=== PATIENT | male | born 1965 | race Caucasian/White ===

== ENCOUNTER 2017-10-02 13:56 | Day surgery (SDC) | payer OTHER, MEDICARE, SELFPAY ==
[2017-10-02 15:12] VITALS: BP 140/86; PULSE 62; RESP 16; TEMP 36.8; O2SAT 98; BMI 19.3
[2017-10-02 16:00] VITALS: BP 139/88; PULSE 70; RESP 18; O2SAT 97
--- NOTE | 2017-10-02 16:00 | HMH.PMPROC ---
- Procedure Date: 10/02/17 Time: 16:00 Anesthesiologist:: Joseph Charles MD Complications:: None Pre-procedure Diagnosis:: Postlaminectomy syndrome and degenerative disc disease of the lumbar spine Post-procedure Diagnosis:: Same Indications for Procedure:: Patient is a pleasant 52-year-old white male we are treating for pain secondary to postlaminectomy syndrome. She is currently on intrathecal pain pump medication. Patient is on Dilaudid and bupivacaine. The Dilaudid concentration is 20 mg/mL and bupivacaine 10 mg/mL. His current rate is 2.75. He is doing well at this rate. Procedure Details:: Informed consent was obtained and the risks and benefits of the procedure was explained to the patient. The patient was taken to the procedure room. The pump was interrogated. The area over the pump was prepped using ChloraPrep. The pump was accessed with a 22-gauge needle. Approximately 6 mL's of the intrathecal solution was withdrawn and discarded. The pump was then refilled with 20 mL's of intrathecal Dilaudid 20 mg/mL plus bupivacaine 20 mg/mL. The pump was interrogated and the infusion was continued at 2.75 mg per day of Dilaudid and 2.75 mg per day. The patient tolerated the procedure well with no complication. Plan and Disposition:: Patient was monitored postprocedure and is doing well. Patient will follow up with this at the time of the next pain pump refill.
[2017-10-02 16:01] VITALS: BP 139/94; PULSE 68; RESP 20; O2SAT 97
[2017-10-02 16:05] VITALS: BP 162/81; PULSE 77; RESP 16; O2SAT 100
[2017-10-02 21:12] LABS: Amphetamine/Metha Screen,Urine Negative ng/mL (<1000); Barbiturates Screen,Urine Negative ng/mL (<200); Benzodiazepines Screen,Urine Negative ng/mL (200); Cannabinoid Screen,Urine Negative ng/mL (<50); Cocaine Screen,Urine Negative ng/g (<300); Methadone Screen,Urine Negative ng/mL (<300); Opiate Screen,Urine Positive ng/mL (<300); Phencyclidine Screen,Urine Negative ng/mL (<25)
[2017-10-16 08:23] LABS: Codeine Negative (Cutoff=100); Hydrocodone Negative (Cutoff=100); Hydromorphone Positive (.); Morphine Positive (.)
[2017-10-18 10:33] LABS: Opiates Positive (.)
== END 2017-10-02 16:28 | disposition home or self-care (01) ==
PROVIDERS: PCP Internal Medicine; Visit Provider Nurse Anesthetist, Certified Registered
DX: M51.36 Other intervertebral disc degeneration, lumbar region (principal); M96.1 Postlaminectomy syndrome, not elsewhere classified
CPT/HCPCS: 62370; 80305; 80361; G0480

== ENCOUNTER → 2017-12-20 08:37 | Day surgery (SDC) | payer OTHER, MEDICARE, SELFPAY ==
[2017-12-20 08:55] VITALS: BP 153/89; PULSE 62; RESP 18; O2SAT 96; BMI 34.3
--- NOTE | 2017-12-20 09:02 | PC.NURSE ---
PATIENT ALERT/ORIENTED AND AMBULATORY AT ASSESSMENT. PATIENT DOES NOT APPEAR TO HAVE ANY DIFFICULTY BREATHING, NORMAL RATE/DEPTH/RHYTHM. PATIENT DID NOT HAVE LIST OF MEDICATIONS WITH HIM NOR WAS HE ABLE TO ADVISE WHAT MEDICATIONS HE TAKES. PATIENT REQUESTED TO BRING LIST OF MEDICATIONS NEXT TIME HE COMES TO CLINIC.
[2017-12-20 09:27] VITALS: BP 140/90; PULSE 57; RESP 20; O2SAT 97
[2017-12-20 09:28] VITALS: BP 139/87; PULSE 63; RESP 18; O2SAT 97
[2017-12-20 09:37] VITALS: BP 146/74; PULSE 54; RESP 20; O2SAT 97
--- NOTE | 2017-12-20 09:41 | P.PCN_ITS ---
- Procedure Date: 12/20/17 Time: 09:38 Anesthesiologist:: Joseph Charles MD Complications:: None Pre-procedure Diagnosis:: Degenerative disc disease of lumbar spine with lumbar radiculopathy symptoms and postlaminectomy syndrome of lumbar spine Post-procedure Diagnosis:: Same Indications for Procedure:: This patient is a pleasant 52-year-old white male who we are treating for low back pain with lumbar radiculopathy symptoms with postlaminectomy syndrome lumbar spine. He currently is on intrathecal Dilaudid/bupivacaine pain pump at 2.75 mg per day. He is doing very well with this Dilaudid/bupivacaine mixture. He does have some pain at night. I have encouraged him to bolus himself every night before he goes to bed. Other than this overall he is much more better and much more functional. He has an antalgic gait. Motor strength of the lower extremities is 5/5. There is no gross sensory deficit. We will refill him today and continue him at 2.75 mg per day of intrathecal Dilaudid/ bupivacaine. Procedure Details:: Pain pump refill informed consent was obtained and the risks and benefits of the procedure was explained to the patient. The patient was taken to the procedure room. The pump was interrogated. The area over the pump was prepped using ChloraPrep. The pump was accessed with a 22-gauge needle. Approximately 6 mL mL's of the intrathecal solution was withdrawn and discarded. The pump was then refilled with 20 mL's of intrathecal Dilaudid 20 mg/mL plus bupivacaine 20 mg/mL. The pump was interrogated and the infusion was continued at 2.75 mg per day. PTM is 0.275 mg up to 6 times a day with a 2 hour lockout. The patient tolerated the procedure well with no complication. Plan and Disposition:: We will follow-up with him in 1 month. We will also try to enroll him in a home refill program. If he does get home or he will then we will need to see him every 6 months.
== END ==
PROVIDERS: PCP Internal Medicine; Visit Provider Anesthesiology
DX: M51.16 Intervertebral disc disorders with radiculopathy, lumbar region (principal)
CPT/HCPCS: 95991

== ENCOUNTER → 2018-06-17 11:39 | Outpatient (POV) | payer OTHER, MEDICARE, SELFPAY ==
[2018-06-17 12:03] VITALS: BP 99/60; PULSE 59; RESP 18; O2SAT 98; BMI 33.9
--- NOTE | 2018-06-17 13:01 | P.PCN_ITS ---
- Procedure Date: 06/17/18 Time: 12:50 Anesthesiologist:: Carley Sen APRN Complications:: None Pre-procedure Diagnosis:: Degenerative disc disease lumbar spine with lumbar radiculopathy symptoms and postlaminectomy syndrome of the lumbar spine Post-procedure Diagnosis:: Same Indications for Procedure:: Patient is a pleasant 53-year-old white male who presents today for intrathecal pain pump reprogramming. Patient has currently been doing home refill however he would like to transfer back to the office. Patient is on a bupivacaine and Dilaudid infusion going at a total of 4.2 mg a day which includes his boluses. Patient is having some increased pain and would like an adjustment. Patient and I discussed utilizing flex dose and he would like to try this. Patient denies any side effects to his medication. He rates his pain a 6 out of 10 Physical Exam General: Alert and oriented x3, no acute distress, pleasant and cooperative, [on room air] Lungs: Resps E/U, Symmetrical chest expansion, Eyes: PERRL Musculoskeletal: Flexion and extension of lumbar spine somewhat guarded secondary to pain, deep tendon reflexes normal, strength in upper and lower extremities [5/5], [abnormal gait noted] Neurological: speech clear, rolling attendant equal, no gross sensory deficits Procedure Details:: Informed consent was obtained and the risk and benefits of the procedure were explained to the patient. The patient was taken to the procedure room where noninvasive monitoring was placed including noninvasive blood pressure cuff and pulse oximeter. Patient's pump was interrogated. The infusion rate was changed to a flex dose with a basal rate of 0.044 mg/h and every 2 hour boluses of 0.3 mg for a total of 4.6 mg/day. The patient tolerated the procedure well. Plan and Disposition:: We will follow-up with the patient at his next intrathecal pain pump refill and reprogram. Patient has been instructed to call the office if he has any issues prior to his next appointment. This note was dictated using voice recognition software and may contain errors or omissions
== END ==
PROVIDERS: PCP Internal Medicine; Visit Provider Clinical Nurse Specialist Family Health
DX: M51.16 Intervertebral disc disorders with radiculopathy, lumbar region (principal); M96.1 Postlaminectomy syndrome, not elsewhere classified
CPT/HCPCS: 62368

== ENCOUNTER → 2018-09-15 13:41 | Outpatient (CLI) | payer OTHER, MEDICARE, SELFPAY ==
--- NOTE | 2018-09-15 13:44 | CT_ITS ---
CT lumbar spine wo con INDICATION: Low back pain with surgery and 2011. Pain gradually worse past 2 weeks. Pain and numbness down both legs been gradually gotten worse over the past 2 weeks.. Pain and numbness both legs ITS.REASON: BACK PAIN ORDERING PHYSICIAN: Carley Sen PATIENT AGE: 53 years COMPARISON: None. No previous studies at this facility TECHNIQUE: Axial images obtained with sagittal and coronal reformats. All CT scans at the facility use one or more dose reduction, viz: automated exposure control, ma/kV adjustment per patient size (including targeted exams where dose is matched to indication, i.e. head), or iterative reconstruction technique. FINDINGS: The lumbar vertebral bodies are intact. No compression fractures or lesions. Subtle wedging T12 appears to be likely congenital variation here which can occur at this level L5/S1. Degenerative disc space narrowing. Mild spondylosis & disc bulge most evident towards foramen-with mild posterior hypertrophic endplate ridging most evident encroach upon right foramen. Prominent facet hypertrophy encroaches upon the foramen bilaterally decreased from the right. The combination of features yields prominent bilateral recess and foraminal encroachment-most pronounced on right. A pain management compatible both right and left buttock region. What what is most likely a pain pump overlies the lower right back towards\right buttocks. There is a catheter or lead enters between L5 and S1 spinous processes to the left.. On axial slice 49 a question early transverse the thecal sac continuing to the anterior right epidural space or margin of the thecal sac. This continues upward were removed to the posterior aspect of thecal sac or epidural space upper L-spine. This warrants reviewed by pain management doctor to verify satisfactory position. Also note what I suspect is a stimulator device overlying the left neck region with lead extending upward towards the T-spine. L4/5. Disc intact. Mild /moderate facet arthropathy. Most evident to the right L3/4. Disc intact mild facet arthropathy. Mild ligament flavum hypertrophy. Slight narrowing the spinal canal.. L2/3. Disc intact. Modest volume underlying osseous spinal canal this particular due to the contour of the lamina posterior elements and ligamentum flavum. Borderline spinal stenosis. L1/2 disc intact T12/L1 disc intact. The kidneys, aorta, retroperitoneal regions and structures included on this lumbar CT study grossly unremarkable. IMPRESSION......... . L5/S1. Degenerative disc narrowing most evident at this level -. Disc bulge/posterior ridging/spondylosis along with very prominent hypertrophic facet features, combine to yield prominent bilateral recess & foraminal encroachment-most evident to the right. Borderline spinal stenosis. . L2/3. Borderline to mild central canal stenosis.- Due to the underlying anatomy along with mild prominence of posterior elements. .L3/4. Modest spinal canal. Mild facet hypertrophy. Trace disc bulge. What appears to be pain pump overlies the right lower back/towards right buttock. Catheter enters posteriorly at L5/S1 and extends through the spinal canal as discussed above. This warrants correlation and detailed review by pain management team & physician to verify satisfactory position of catheter . .
== END ==
PROVIDERS: PCP Internal Medicine; Visit Provider Clinical Nurse Specialist Family Health
DX: M54.9 Dorsalgia, unspecified (principal)
CPT/HCPCS: 72131

== ENCOUNTER → 2018-09-23 14:37 | Outpatient (CLI) | payer BC, SELFPAY ==
[2018-09-23 17:13] LABS: Amphetamine/Metha Screen,Urine Negative ng/mL (<1000); Barbiturates Screen,Urine Negative ng/mL (<200); Benzodiazepines Screen,Urine Negative ng/mL (<200); Cannabinoid Screen,Urine Negative ng/mL (<50); Cocaine Screen,Urine Negative ng/mL (<300); Methadone Screen,Urine Negative ng/mL (<300); Opiate Screen,Urine Positive ng/mL (<300); Phencyclidine Screen,Urine Negative ng/mL (<25)
[2018-09-27 13:10] LABS: Codeine Negative (Cutoff=100); Hydrocodone Negative (Cutoff=100); Hydromorphone Positive (.); Morphine Negative (Cutoff=100)
[2018-09-27 22:48] LABS: Opiates Positive (.)
== END ==
PROVIDERS: Visit Provider Clinical Nurse Specialist Family Health
DX: M51.16 Intervertebral disc disorders with radiculopathy, lumbar region (principal); Z79.899 Other long term (current) drug therapy
CPT/HCPCS: 80305; 80361; 80365; 95991; G0480

== ENCOUNTER → 2019-01-27 12:04 | Outpatient (POV) | payer BC, MEDICARE, SELFPAY ==
[2019-01-27 12:15] VITALS: BP 141/87; PULSE 60; RESP 18; O2SAT 98; BMI 35.9
--- NOTE | 2019-01-27 12:34 | HMH.PAINSOAP ---
[facility] Pain Management SOAP Note Subjective:: Patient is a pleasant 53-year-old white male who presents today for follow-up after MILD procedure. Patient is doing extremely well stating he can can at least double the amount of time he was able to before he is walking better. He is having some muscle cramps however overall he is doing well. Patient does have an intrathecal pain pump rates his pain a 4 out of 10 today. Patient will be trying CBD oil. I encouraged this. Patient is tried and failed Flexeril and Zanaflex has had no relief of his cramping. Most of his pain is in his legs during this time. Patient states he has not fallen one time since his surgery. ROS General: no recent weight change, no fever, no sleep disturbances Respiratory: no cough, no shortness of air, no recurring pulmonary infections Cardiovascular/Peripheral Vascular: No chest pain, No palpitations, no edema, no shortness of breath. Gastrointestinal: no incontinence, normal bowel movements reported Genitourinary: no incontinence Musculoskeletal: Back pain, leg pain Psychiatric: normal mood/ affect, [denies depression], [denies anxiety] Neurological: [denies weakness in extremities], [denies balance issues] Objective:: Physical Exam General: Alert and oriented x3, no acute distress, pleasant and cooperative, [on room air] Lungs: Resps E/U, Symmetrical chest expansion, Eyes: PERRL Musculoskeletal: Flexion and extension of lumbar spine somewhat guarded secondary to pain, deep tendon reflexes normal, strength in upper and lower extremities [5/5], [abnormal gait noted] Neurological: speech clear, pharmaceutical service representative equal, no gross sensory deficits Assessment:: Degenerative disc disease lumbar spine with spinal stenosis and neurogenic claudication Plan:: We will see the patient back at his next intrathecal pain pump refill and reprogram. He is been instructed to call the office if he has any issues prior to his next appointment. Will call in Robaxin 500 mg 1 p.o. twice daily as needed for him. Dr. Charles has reviewed this note and agrees with this plan of care. This note was dictated using voice recognition software and may contain errors or omissions
== END ==
PROVIDERS: PCP Internal Medicine; Visit Provider Clinical Nurse Specialist Family Health
DX: M48.062 Spinal stenosis, lumbar region with neurogenic claudication (principal)
CPT/HCPCS: 99212

== ENCOUNTER → 2019-11-12 09:43 | Outpatient (POV) | payer BC, MEDICARE, SELFPAY ==
--- NOTE | 2019-11-12 10:50 | P.CONS_ITS ---
[facility] History Medical History: Reports:: Hypertension (not on meds), Lung Disease (YUMIKO-cpap hs) Denies:: Cancer, Diabetes Mellitus Type 1, Diabetes Mellitus Type 2, Internal Pacemaker, MRSA, Seizures *Have you ever received a pneumonia vaccine?: No *Have you received a flu vaccine this season?: Yes Other Medical History: Reports: Arthritis. Denies: Blood Transfusion Reaction Other Surgeries: Yes: Cholecystectomy, Other (pain pump/stimulator, back sx, detached retina sx). No: Pacemaker Amputation: No Fractures: No - *Social History Smoking Status: Current every day smoker Tobacco Type: cigarettes # Packs/Day (cigarettes): 1 Alcohol Intake: never Substance Use Type: other *Occupational Status:: disabled Housing: house Household Members: spouse Family Hx:: Unable to obtain
[2019-11-12 10:51] VITALS: BP 123/77; PULSE 82; RESP 18; O2SAT 99; BMI 37.3
--- NOTE | 2019-11-12 10:54 | HMH.PMPROC ---
- Procedure Date: 11/12/19 Time: 10:54 Anesthesiologist:: Yenny Wise APRN Complications:: None Pre-procedure Diagnosis:: Degenerative disc disease lumbar spine with lumbar radiculopathy symptoms Post-procedure Diagnosis:: Same Indications for Procedure:: Patient is a pleasant 54-year-old white male who presents today for follow-up he is being treated for low back pain with lumbar radiculopathy symptom. Patient does have an intrathecal pain pump. He also has a spinal cord stimulator that was replaced last week. Patient says he is doing well, overall. He does rate his pain a 7 out of 10 today. He says that he continues to have low back pain and understands that nothing will take all of his pain away. He says that the pain is worse with standing and walking. Most of his pain is in his bilateral lower extremities that have pain along with numbness and tingling. He also has some edema in bilateral lower extremities that he says he is discussed with his primary care provider. The patient is on Lasix and says this is not helping with the edema. His intrathecal pump currently has Dilaudid 25 mg/mL and bupivacaine 25 mg/mL. Patient says that he knows he is getting high with his intrathecal dose and knows that he will have to limit the amount of medicine that he continues to use in his pump or he will be without any other options. He says he has tried other medications in his intrathecal pump and has not gotten relief or had severe side effects with nausea and vomiting. He is currently on a flex dose at 0 0.45 mg every 2 hours. He would like a slight increase today. We will increase him to see if he gets some relief. Physical exam General: Alert and oriented x3, no acute distress, pleasant and cooperative, [on room air] Lungs: Respirations even and unlabored, symmetrical chest expansion Eyes: PERRL Musculoskeletal: Flexion and extension of lumbar spine somewhat guarded secondary to pain, deep tendon reflexes normal, strength in upper and lower extremities [5/5], [abnormal gait noted] Neurological: Speech clear, customer experience professional equal, no gross sensory deficit Procedure Details:: Informed consent was obtained and the risk and benefits of the procedure were explained to the patient. Patient was taken to the procedure room where noninvasive monitoring was placed including noninvasive blood pressure cuff and pulse oximeter. Patient's pump was interrogated and was reprogrammed to a flex dose of 0.5 mg every 2 hours. The patient tolerated the procedure well with no complications. Plan and Disposition:: We will see the patient back in the clinic in 2 weeks to remove his sutures. Patient has been instructed to contact clinic if he has any concerns before his next appointment. Overall, his incision looks good at his stimulator site. There is no drainage, no redness, no edema noted to site. His sutures are intact. Patient has been instructed to contact clinic if he has any concerns before his next appointment. Patient's Will #[id number] has been reviewed and is appropriate. Patient's urine drug screens have been appropriate. His morphine equivalent is 0.
--- NOTE | 2019-11-19 11:13 | PC.NURSE ---
robaxin 500mg bid with 4 refills called into [facility] in [place] per provider order
== END ==
PROVIDERS: PCP Internal Medicine; Visit Provider Clinical Nurse Specialist Family Health
DX: M51.16 Intervertebral disc disorders with radiculopathy, lumbar region (principal); Z79.899 Other long term (current) drug therapy; R60.0 Localized edema
CPT/HCPCS: 62368

== ENCOUNTER → 2020-02-02 13:42 | Day surgery (SDC) | payer BC, MEDICARE, SELFPAY ==
[2020-02-02 13:52] VITALS: BP 160/94; PULSE 78; RESP 18; O2SAT 94
[2020-02-02 14:08] VITALS: BP 146/80; PULSE 69; RESP 18; TEMP 36.7; O2SAT 98
[2020-02-02 14:15] VITALS: BP 147/75; PULSE 70; RESP 18; O2SAT 99
--- NOTE | 2020-02-02 14:24 | HMH.PMPROC ---
- Procedure Date: 02/02/20 Time: 14:24 Anesthesiologist:: aCrley Sen APRN Complications:: None Pre-procedure Diagnosis:: Degenerative euro disc disease lumbar spine with lumbar radiculopathy postlaminectomy syndrome Post-procedure Diagnosis:: Same Indications for Procedure:: Patient is a pleasant 54-year-old who presents today for intrathecal pain pump refill and reprogram. Will reviewed and appropriate. Patient's urine drug screens have been appropriate. He rates his pain today as 7 out of 10. He is on a current flex dose of 0.5 mg every 2 hours Physical Exam General: Alert and oriented x3, no acute distress, pleasant and cooperative, [on room air] Lungs: Resps E/U, Symmetrical chest expansion, Eyes: PERRL Musculoskeletal: Flexion and extension of lumbar spine somewhat guarded secondary to pain, deep tendon reflexes normal, strength in upper and lower extremities [5/5], [abnormal gait noted] Neurological: speech clear, counseling services director equal, no gross sensory deficits Procedure Details:: Informed consent was obtained and the risk and benefits of the procedure were explained to the patient. The patient was taken to the procedure room where noninvasive monitoring was placed including noninvasive blood pressure cuff and pulse oximeter. Patient's pump was interrogated. The area over the pump was cleansed with chlorhexidine as a cleansing solution. In sterile fashion the pump was accessed with a 22-gauge needle. Approximately 5 mL's were removed of the pump solution and discarded appropriately. The pump was then refilled with 20 mL's of hydromorphone 25 mg/mL and bupivacaine 25 mg/mL. The needle was withdrawn and a bandage was placed over the puncture site. The infusion rate was reprogrammed to 0.55 mg every 2 hours. The patient tolerated the procedure well. Plan and Disposition:: We will see the patient back at his next intrathecal pain pump refill and reprogram. He has been instructed to call the office if he has any issues prior to his next appointment. Dr. Charles has reviewed this note and agrees with this plan of care. This note was dictated using voice recognition software and may contain errors or omissions
[2020-02-02 14:29] VITALS: BP 156/90; PULSE 63; RESP 18; O2SAT 94
== END ==
PROVIDERS: PCP Internal Medicine; Visit Provider Clinical Nurse Specialist Family Health
DX: M51.16 Intervertebral disc disorders with radiculopathy, lumbar region (principal); M96.1 Postlaminectomy syndrome, not elsewhere classified; Z88.8 Allergy status to other drugs, medicaments and biological substances; Z72.0 Tobacco use; F32.9 Major depressive disorder, single episode, unspecified; F41.9 Anxiety disorder, unspecified; Z87.442 Personal history of urinary calculi; Z86.69 Personal history of other diseases of the nervous system and sense organs
CPT/HCPCS: 62370

== ENCOUNTER 2020-04-11 14:09 | Day surgery (SDC) | payer BC, MEDICARE, SELFPAY ==
[2020-04-11 14:46] VITALS: BP 138/84; PULSE 66; RESP 18; TEMP 36.7; O2SAT 97; BMI 37.3
--- NOTE | 2020-04-11 15:00 | HMH.PMPROC ---
- Procedure Date: 04/11/20 Time: 15:00 Anesthesiologist:: Yenny Wise APRN Complications:: None Pre-procedure Diagnosis:: Degenerative disc disease lumbar spine with lumbar radiculopathy symptoms, postlaminectomy syndrome lumbar spine Post-procedure Diagnosis:: Same Indications for Procedure:: Patient is a pleasant 54-year-old white male who presents today for intrathecal pain pump refill and reprogram. He has been treated for low back pain with lumbar radiculopathy symptoms. Patient rates his pain a 6 out of 10 today. He is currently on a flex dose of 0.55 mg every 2 hours. He denies any side effects to the medication. Patient's Will #[id number] has been reviewed and is appropriate. His urine drug screens have been appropriate. His morphine equivalent is 0. Patient rates his pain a 6 out of 10 today. Physical exam General: Alert and oriented x3, no acute distress, pleasant and cooperative, [on room air] Lungs: Respirations even and unlabored, symmetrical chest expansion Eyes: PERRL Musculoskeletal: Flexion and extension of lumbar spine somewhat guarded secondary to pain, deep tendon reflexes normal, strength in upper and lower extremities [5/5], [abnormal gait noted] Neurological: Speech clear, electric needle specialist equal, no gross sensory deficit Procedure Details:: Informed consent was obtained and the risk and benefits of the procedure were explained to the patient. The patient was taken to the procedure room where noninvasive monitoring was placed including noninvasive blood pressure cuff and pulse oximeter. Patient's pump was interrogated. The area over the pump was cleansed with chlorhexidine as a cleansing solution. In sterile fashion the pump was accessed with a 22-gauge needle. Approximately 2.5 Mls of the pump solution was removed and discarded appropriately. The pump was then refilled with 20 mL's of hydromorphone 25 mg/mL bupivacaine 25 mg/mL. The needle was withdrawn and a bandage was placed over the puncture site. The infusion rate was reprogrammed at 0.55 mg every 2 hours. The patient tolerated well with no complication. Plan and Disposition:: We will see the patient back in the clinic at his next intrathecal pain pump refill and reprogram. He has been instructed to contact the clinic if he has any concerns before his next appointment. The patient and I specifically discussed risk factors for COVID19. These risks include, but are not limited to age greater than 60, heart or lung disease, diabetes, immunosuppression, and travel. We also discussed NSAIDs may worsen COVID19 infection or symptoms. Patient should not use NSAIDs to treat COVID19 signs or symptoms. Patient was also informed that any type of corticosteroid of any form (oral or injection) will decrease the patient's immune system response and may increase the likelihood of COVID19 infection [address] symptoms[address]. Charles has reviewed this note and agrees with this plan of care. This note was dictated using voice recognition software and make contain errors or omissions.
[2020-04-11 15:03] VITALS: BP 131/81; BP 132/88; PULSE 65; PULSE 66; RESP 18; O2SAT 98
[2020-04-11 15:15] VITALS: BP 140/71; PULSE 65; RESP 18; O2SAT 97
== END 2020-04-11 15:16 | disposition home or self-care (01) ==
LOC: SC.PAINP 14:12
PROVIDERS: PCP Internal Medicine; Visit Provider Clinical Nurse Specialist Family Health
DX: M51.16 Intervertebral disc disorders with radiculopathy, lumbar region (principal); M96.1 Postlaminectomy syndrome, not elsewhere classified; Z72.0 Tobacco use; Z87.39 Personal history of other diseases of the musculoskeletal system and connective tissue; I10 Essential (primary) hypertension; G47.33 Obstructive sleep apnea (adult) (pediatric); M19.90 Unspecified osteoarthritis, unspecified site; F41.9 Anxiety disorder, unspecified; F32.9 Major depressive disorder, single episode, unspecified; N40.0 Benign prostatic hyperplasia without lower urinary tract symptoms; Z79.899 Other long term (current) drug therapy; Z88.8 Allergy status to other drugs, medicaments and biological substances
CPT/HCPCS: 95991

== ENCOUNTER 2020-06-06 14:34 | Day surgery (SDC) | payer BC, MEDICARE, SELFPAY ==
[2020-06-06 14:56] VITALS: BP 149/88; PULSE 86; RESP 18; TEMP 37.2; O2SAT 99; BMI 38.0
[2020-06-06 15:24] VITALS: BP 134/87; PULSE 79; RESP 18; O2SAT 98
[2020-06-06 15:25] VITALS: BP 135/87; PULSE 88; RESP 18; TEMP 36.8; O2SAT 98
--- NOTE | 2020-06-06 15:37 | P.PCN_ITS ---
- Procedure Date: 06/06/20 Time: 15:37 Anesthesiologist:: Carley Sen APRN Complications:: None Pre-procedure Diagnosis:: Degenerative disc disease lumbar spine lumbar radiculopathy symptoms postlaminectomy syndrome lumbar spine Post-procedure Diagnosis:: Same Indications for Procedure:: Patient is a pleasant 55-year-old white male who presents today for intrathecal pain pump refill and reprogram. He is being treated for pain secondary to lumbar postlaminectomy syndrome. Patient's main complaint is his right SI joint pain today. Patient had many injections with Dr. Gray for SI joint pain however they did not last care home. We discussed a corner lock procedure. I will set him up for a an SI joint injection with Dr. bass to see if this would benefit him. He does have a positive Oral's test SI joint compression test and Josiah test on the right side. Patient denies side effects to his medication. He is currently on hydromorphone going at 0.55 mg every 2 hours. [facility] #[id number] reviewed and appropriate. He rates his pain today an 8 out of 10 Physical Exam General: Alert and oriented x3, no acute distress, pleasant and cooperative, Lungs: Resps E/U, Symmetrical chest expansion, Eyes: PERRL Musculoskeletal: Flexion and extension of lumbar spine somewhat guarded secondary to pain, deep tendon reflexes normal, strength in upper and lower extremities [5/5], [abnormal gait noted] Neurological: speech clear, tableman equal, no gross sensory deficits Procedure Details:: Informed consent was obtained and the risk and benefits of the procedure were explained to the patient. The patient was taken to the procedure room where noninvasive monitoring was placed including noninvasive blood pressure cuff and pulse oximeter. Patient's pump was interrogated. The area over the pump was cleansed with chlorhexidine as a cleansing solution. In sterile fashion the pump was accessed with a 22-gauge needle. Approximately 6 mL's were removed of the pump solution and discarded appropriately. The pump was then refilled with 20 mL's of hydromorphone 25 mg/mL and bupivacaine 25 mg/mL. The needle was withdrawn and a bandage was placed over the puncture site. The infusion rate was reprogrammed to 0.55 mg every 2 hours. The patient tolerated the procedure well. Plan and Disposition:: We will set him up for right SI joint injection with Dr. Tafoya to see if he is a candidate for corner lock procedure. Patient will also be called in Robaxin 500 mg 1 p.o. 3 times daily to see if this is beneficial for him. I will follow-up with him after this reassess his symptoms at that time he has been instructed to call the office if he has any issues prior to his next appointment. Dr. Charles has reviewed this note and agrees with this plan of care. This note was dictated using voice recognition software and may contain errors or omissions
[2020-06-06 15:50] VITALS: BP 124/76; PULSE 78; RESP 20; O2SAT 98
== END 2020-06-06 15:52 | disposition home or self-care (01) ==
LOC: SC.PAINP 14:38
PROVIDERS: PCP Internal Medicine; Visit Provider Clinical Nurse Specialist Family Health
DX: M51.16 Intervertebral disc disorders with radiculopathy, lumbar region (principal); M96.1 Postlaminectomy syndrome, not elsewhere classified
CPT/HCPCS: 95991

== ENCOUNTER 2020-07-25 13:59 | Day surgery (SDC) | payer BC, MEDICARE, SELFPAY ==
[2020-07-25 14:14] VITALS: BP 134/76; PULSE 66; RESP 20; TEMP 36.4; O2SAT 95; BMI 35.6
--- NOTE | 2020-07-25 14:26 | P.PCN_ITS ---
- Procedure Date: 07/25/20 Time: 14:40 Anesthesiologist:: Carley Sen APRN Complications:: None Pre-procedure Diagnosis:: Degenerative disc disease lumbar spine lumbar radiculopathy postlaminectomy syndrome lumbar spine Post-procedure Diagnosis:: Same Indications for Procedure:: Patient is a pleasant 55-year-old white male who presents today for intrathecal pain pump refill and reprogram. He is being treated for pain secondary to lumbar postlaminectomy syndrome. Patient's main complaint is right SI joint pain. Patient has had many injections with Dr. Gray for SI joint pain however they did not last prison. We have discussed a corner lock procedure. We will set him up for an SI joint injection with Dr. Parada. Patient states that his pain pump is beneficial however he is not getting excellent pain relief. He is currently on hydromorphone 0.55 mg every 2 hours with a basal rate as well. He rates his pain an 8 out of 10. [facility] #[id number] reviewed. Physical Exam General: Alert and oriented x3, no acute distress, pleasant and cooperative, [on room air] Lungs: Resps E/U, Symmetrical chest expansion, Eyes: PERRL Musculoskeletal: Flexion and extension of lumbar spine somewhat guarded secondary to pain, deep tendon reflexes normal, strength in upper and lower extremities [5/5], [abnormal gait noted] Neurological: speech clear, mangle tender cloth equal, no gross sensory deficits Procedure Details:: Informed consent was obtained and the risk and benefits of the procedure were explained to the patient. The patient was taken to the procedure room where noninvasive monitoring was placed including noninvasive blood pressure cuff and pulse oximeter. Patient's pump was interrogated. The area over the pump was cleansed with chlorhexidine as a cleansing solution. In sterile fashion the pump was accessed with a 22-gauge needle. Approximately 7.5 mL's were removed of the pump solution and discarded appropriately. The pump was then refilled with 20 mL's of hydromorphone 30 mg/mL bupivacaine 30 mg/mL. The needle was withdrawn and a bandage was placed over the puncture site. The infusion rate was reprogrammed to continue at 0.55 mg every 2 hours for total daily dose of 7.5 mg/day. The patient tolerated the procedure well. Plan and Disposition:: Patient was unable to tolerate morphine when he had his trial. Patient has been on Dilaudid for quite some time. I will discuss with Dr. Parada about a potential medication change will let the patient know. We will also set him up for right SI joint injection. He has been instructed to call the office if he has any issues prior to his next appointment. Dr. Charles has reviewed this note and agrees with this plan of care. This note was dictated using voice recognition software and may contain errors or omissions
[2020-07-25 14:28] VITALS: BP 145/91; PULSE 67; RESP 20; O2SAT 95
[2020-07-25 14:30] VITALS: BP 163/99; PULSE 64; RESP 20; O2SAT 96
[2020-07-25 15:21] VITALS: BP 124/70; PULSE 61; RESP 20; TEMP 36.4; O2SAT 99
== END 2020-07-25 15:15 | disposition home or self-care (01) ==
LOC: SC.PAINP 14:00
PROVIDERS: PCP Internal Medicine; Visit Provider Clinical Nurse Specialist Family Health
DX: M51.16 Intervertebral disc disorders with radiculopathy, lumbar region (principal); M96.1 Postlaminectomy syndrome, not elsewhere classified; Z45.1 Encounter for adjustment and management of infusion pump
CPT/HCPCS: 95991

== ENCOUNTER 2020-09-26 13:53 | Day surgery (SDC) | payer OTHER, MEDICARE, SELFPAY ==
[2020-09-26 13:59] VITALS: BP 130/71; PULSE 62; RESP 18; TEMP 36.4; O2SAT 98; BMI 35.6
[2020-09-26 14:29] VITALS: BP 177/89; PULSE 72; RESP 18; O2SAT 99
[2020-09-26 14:30] VITALS: BP 168/79; PULSE 74; RESP 18; O2SAT 98
--- NOTE | 2020-09-26 14:44 | HMH.PMPROC ---
- Procedure Date: 09/26/20 Time: 14:44 Anesthesiologist:: Carley Sen APRN Complications:: None Pre-procedure Diagnosis:: Degenerative disc disease lumbar spine lumbar radiculopathy and postlaminectomy syndrome lumbar spine Post-procedure Diagnosis:: Same Indications for Procedure:: Patient is pleasant 55-year-old white male who presents today for intrathecal pain pump refill and reprogram. Since his last visit he has had a stay in the hospital where he was treated for severe sinus infection and a severe reaction to Ambien. Patient has since quit smoking and is lost weight. He feels better. He rates his pain today a 7 out of 10. Patient states that after his hospital stay and after the infection was treated he had no pain. Patient does have currently hydromorphone going at 0.55 mg every 2 hours for total daily dose of 7.5 mg/day he would like a slight increase today. [facility] #[id number] reviewed and appropriate. We had discussed changing medications however since he is doing better at this time I think we should hold off on this. Procedure Details:: Informed consent was obtained and the risk and benefits of the procedure were explained to the patient. The patient was taken to the procedure room where noninvasive monitoring was placed including noninvasive blood pressure cuff and pulse oximeter. Patient's pump was interrogated. The area over the pump was cleansed with chlorhexidine as a cleansing solution. In sterile fashion the pump was accessed with a 22-gauge needle. Approximately 10 mL's were removed of the pump solution and discarded appropriately. The pump was then refilled with 20 mL's of hydromorphone 30 mg/mL and bupivacaine 30 mg/mL. The needle was withdrawn and a bandage was placed over the puncture site. The infusion rate was reprogrammed to 8.251 mg/day. The patient tolerated the procedure well. Plan and Disposition:: Patient had a discrepancy in the amount expected. There was an expected 4.5 mL and we received 10 mL out. We will continue to monitor this. I did discuss with the patient catheter dye study along with potential issues with the pump he will continue to monitor he is can call our office if he has any issues prior to his next appointment. Dr. Charles has reviewed this note and agrees with this plan of care. This note was dictated using voice recognition software and may contain errors or omissions
[2020-09-26 14:50] VITALS: BP 151/76; PULSE 66; RESP 20; O2SAT 98
== END 2020-09-26 14:50 | disposition home or self-care (01) ==
LOC: SC.PAINP 13:55
PROVIDERS: PCP Internal Medicine; Visit Provider Clinical Nurse Specialist Family Health
DX: M51.16 Intervertebral disc disorders with radiculopathy, lumbar region (principal); M96.1 Postlaminectomy syndrome, not elsewhere classified
CPT/HCPCS: 62370

== ENCOUNTER 2020-11-21 13:15 | Day surgery (SDC) | payer OTHER, MEDICARE, SELFPAY ==
[2020-11-21 13:37] VITALS: BP 120/77; PULSE 72; RESP 20; TEMP 37; BMI 36.6
--- NOTE | 2020-11-21 13:48 | HMH.PMPROC ---
- Procedure Date: 11/21/20 Time: 13:48 Anesthesiologist:: Carley Sen APRN Complications:: None Pre-procedure Diagnosis:: Degenerative disc disease lumbar spine lumbar radiculopathy and postlaminectomy syndrome lumbar spine Post-procedure Diagnosis:: Same Indications for Procedure:: Patient is a pleasant 55-year-old white male who presents today for intrathecal pain pump refill and reprogram. He is continuing to have increasing pain today. He rates his pain 7 out of 10. He states that he is increased his spinal cord stimulator to help compensate for the pain. He is currently being treated with hydromorphone total daily dose of 8.251 mg/day. At his last appointment for pain pump refill there was a discrepancy 4.5 mL was expected and we had 10 mL out of the pump. Will was reviewed and is appropriate. Procedure Details:: Informed consent was obtained and the risk and benefits of the procedure were explained to the patient. The patient was taken to the procedure room where noninvasive monitoring was placed including noninvasive blood pressure cuff and pulse oximeter. Patient's pump was interrogated. The area over the pump was cleansed with chlorhexidine as a cleansing solution. In sterile fashion the pump was accessed with a 22-gauge needle. Approximately [17.5] mL's were removed of the pump solution and discarded appropriately. The pump was then refilled with 20 mL's of [Dilaudid 30 mg/mL and bupivacaine 30 mg/mL with]. The needle was withdrawn and a bandage was placed over the puncture site. The infusion rate was reprogrammed to [8.251mg/day]. The patient tolerated the procedure well. Plan and Disposition:: There was a discrepancy in the pump today we were expected to have 4mLs remaining in the pump, we extracted 17.5 mL. Patient has had discrepancy issues in the past patient's pump seem to be functioning appropriately. Patient is due for change out of pump within the next year. We will go ahead and set him up for new intrathecal pain pump utilizing a [employer] system. Dr. Charles has reviewed this note and agrees with this plan of care. This note was dictated using voice recognition software and may contain errors or omissions
[2020-11-21 13:49] VITALS: BP 137/84; PULSE 78; RESP 18
[2020-11-21 13:56] VITALS: BP 138/88; PULSE 79; RESP 18; O2SAT 97
[2020-11-21 15:01] VITALS: BP 131/84; PULSE 73; RESP 20; TEMP 37; O2SAT 96
== END 2020-11-21 14:00 | disposition home or self-care (01) ==
LOC: SC.PAINP 13:20
PROVIDERS: PCP Internal Medicine; Visit Provider Clinical Nurse Specialist Family Health
DX: M51.16 Intervertebral disc disorders with radiculopathy, lumbar region (principal); M96.1 Postlaminectomy syndrome, not elsewhere classified; N40.0 Benign prostatic hyperplasia without lower urinary tract symptoms; K21.9 Gastro-esophageal reflux disease without esophagitis; F41.9 Anxiety disorder, unspecified; F32.9 Major depressive disorder, single episode, unspecified; Z90.49 Acquired absence of other specified parts of digestive tract; Z87.442 Personal history of urinary calculi; Z88.8 Allergy status to other drugs, medicaments and biological substances; Z88.5 Allergy status to narcotic agent; Z79.899 Other long term (current) drug therapy
CPT/HCPCS: 62370

== ENCOUNTER → 2021-01-03 10:48 | Outpatient (CLI) | payer OTHER, MEDICARE, SELFPAY ==
[2021-01-03 11:15] LABS: Basophils # 0.1 K/mm3 (0-0.2); Basophils % 0.7 % (0.1-2.0); Eosinophils # 0.1 K/mm3 (0.0-0.4); Hematocrit 42.5 % (42.0-52.0); Hemoglobin 13.9 g/dL (14.1-18.0); Lymphocytes # 2.5 K/mm3 (0.7-4.5); Lymphocytes % 34.4 % (10-50); Mean Corpuscular HGB Conc 32.7 g/dL (31.8-35.4); Mean Corpuscular Hemoglobin 30.5 pg (27.0-31.2); Mean Corpuscular Volume 93.2 fl (80-94); Mean Platelet Volume 8.3 fl (7.4-10.4); Monocytes # 0.6 K/mm3 (0.1-1.0); Neutrophils # 3.9 K/mm3 (1.8-7.8); Neutrophils % 54.9 % (37.0-80.0); Platelet Count 274 K/mm3 (142-424); Red Blood Count 4.56 M/mm3 (4.60-6.20); Red Cell Distribution Width 13.1 % (11.5-17.5); White Blood Count 7.2 K/mm3 (4.8-10.8)
[2021-01-03 11:27] LABS: Barbiturates Screen,Urine Negative ng/ml (<200)
[2021-01-03 11:28] LABS: Benzodiazepines Screen,Urine Negative ng/ml (<200)
[2021-01-03 11:29] LABS: Amphetamine/Metha Screen,Urine Negative ng/ml (<1000); Cocaine Screen,Urine Negative ng/ml (<300)
[2021-01-03 11:30] LABS: Methadone Screen,Urine Negative ng/ml (<300)
[2021-01-03 11:31] LABS: Cannabinoid Screen,Urine Negative ng/ml (<50); Opiate Screen,Urine Negative ng/ml (<300)
[2021-01-03 11:32] LABS: Phencyclidine Screen,Urine Negative ng/ml (<25)
[2021-01-03 11:47] LABS: Chloride 99 mmol/L (98-107); Potassium 3.8 mmoL/L (3.5-5.1); Sodium 138 mmol/L (136-145)
[2021-01-03 11:50] LABS: Anion Gap 11.8 mEq/L (5-15); Blood Urea Nitrogen 15 mg/dl (9-20); Calcium 9.1 mg/dl (8.4-10.2); Carbon Dioxide 31 mmol/L (22.0-30.0); Estimated Glomerular Filt Rate 88 ml/min (>60); GFR (African American) 106 ML/MIN (>60); Glucose 128 mg/dl (74-100)
[2021-01-03 12:38] LABS: Coronavirus 19 IgG Antibody Positive (Negative); Coronavirus 19 IgM Antibody Negative (Negative)
== END ==
PROVIDERS: Visit Provider Anesthesiology
DX: Z01.812 Encounter for preprocedural laboratory examination (principal); Z20.822 Contact with and (suspected) exposure to COVID-19; M51.36 Other intervertebral disc degeneration, lumbar region
CPT/HCPCS: 36415; 80048; 80305; 85025; 86328

== ENCOUNTER 2021-01-04 06:44 | Day surgery (SDC) | payer OTHER, MEDICARE, SELFPAY ==
[2020-12-29 13:16] VITALS: BMI 35.9
[2021-01-04] VITALS (13 sets, daily range): BP systolic 117–146; BP diastolic 56–85; PULSE 60–94; RESP 16–18; TEMP 36.3–37; O2SAT 92–100
--- NOTE | 2021-01-04 08:11 | HMH.PMCON ---
Assessment and Plan - Assessment and plan all Dx Assessment and Plan for all problems:: Hvleunjvqj-rwu-lz-life, pain pump generator Plan-removal and replacement of pain pump generator HPI - Data of Consult Patient: known to practice within the last 3 years Consult date: 01/04/21 Requesting Physician: Nigel Jackson MD Primary Care Provider: Analy Garduno - Consult Narrative Reason for consult: End of life, pain pump generator History of present illness: Mr. Urrutia is a 55 year old male his pain pump generator is nearing end-of-life status. He comes today for replacement of his generator and his new catheter CC: Nigel Jackson MD [facility] History I have reviewed the patient's past medical history: Yes Medical History: Reports:: Hypertension (not on meds), Lung Disease (YUMIKO-cpap hs) Denies:: Cancer, Diabetes Mellitus Type 1, Diabetes Mellitus Type 2, Internal Pacemaker, MRSA, Seizures *Have you ever received a pneumonia vaccine?: No *Have you received a flu vaccine this season?: Yes Other Medical History: Reports: Arthritis. Denies: Blood Transfusion Reaction Comment:: Illnesses hypertension, seizure disorder, BPH, kidney stones, GERD, DDD, anxiety and depression Other Surgeries: Yes: Appendectomy, Cholecystectomy, Colonoscopy, Other (total 5 back surgery). No: Pacemaker Amputation: No Fractures: No Comment: Operations pain pump implant, neurostimulator implant, appendectomy, cholecystectomy, detached retina surgery, lumbar spine surgery 2011 - *Social History Last grade of school completed: High school graduate Smoking Status: Former smoker Tobacco Type: cigarettes # Packs/Day (cigarettes): 1 #Yrs smoked (if former smoker): 30 Smoking End Date: 08/25/20 Alcohol Intake: never Substance Use Type: other *Occupational Status:: retired, disabled Housing: house Household Members: spouse, children *Travel in the last 8 weeks: None Family Hx:: No significant family history Review of Systems - Review of Systems Review of systems:: pertinent systems reviewed and negative unless documented below Meds Home Medications Medication Instructions Recorded Confirmed Type Bethanechol Chloride [Urecholine] 25 mg PO TID 09/23/18 01/04/21 History Bupivacaine HCl/0.9 % NaCl/Pf 5 mg IT CONT 09/23/18 01/04/21 History [Bupivacaine 0.25%-Ns Syringe] Buspirone HCl [Buspar 10mg 10 mg PO DAILY 09/23/18 01/04/21 History tablet] Cholecalciferol (Vitamin D3) 2,000 unit PO DAILY 09/23/18 01/04/21 History [Vitamin D3 1,000 Unit Cap] Clobetasol Propionate 30 gm TP TIDP PRN 09/23/18 01/04/21 History Dupilumab [Dupixent] 300 mg SQ NEEDED PRN 09/23/18 01/04/21 History Hydromorphone HCl/Pf [Dilaudid 5 mg IT CONT 09/23/18 01/04/21 History 1mg/ml inj] Omeprazole [Omeprazole 40mg 40 mg PO DAILY 09/23/18 01/04/21 History Capsule] Primidone [Mysoline 50mg tablet] 1 - 2 cap PO HS 09/23/18 01/04/21 History Tamsulosin HCl [Flomax 0.4mg 0.4 mg PO HS 09/23/18 01/04/21 History capsule] Methocarbamol [Robaxin 500mg Tab*] 500 mg PO TID 07/25/20 01/04/21 History Ascorbic Acid [Vitamin C] 500 mg PO DAILY 01/02/21 01/04/21 History Cyanocobalamin (Vitamin B-12) 5,000 mcg IM MONTHLY 01/02/21 01/04/21 History [Vitamin B-12] Diclofenac Sodium [Diclofenac 75mg 75 mg PO BID 01/02/21 01/04/21 History Tab] Furosemide [Lasix 20mg tab] 20 mg PO DAILY 01/02/21 01/04/21 History Melatonin 10 mg PO HS 01/02/21 01/04/21 History Allergies Allergy/AdvReac Type Severity Reaction Status Date / Time bupropion [From WELLBUTRIN] Allergy Unknown Verified 12/29/20 13:00 duloxetine [From CYMBALTA] Allergy Unknown Verified 12/29/20 13:00 gabapentin [GABAPENTIN] Allergy Unknown Verified 12/29/20 13:00 morphine [MORPHINE] Allergy Unknown I-HIVES Verified 12/29/20 13:00 pregabalin [From LYRICA] Allergy Unknown Verified 12/29/20 13:00 cyclosporine Allergy Verified 04/19/21 12:45 zolpidem [From Juwan] AdvR
--- NOTE | 2021-01-04 09:20 | P.PN_ITS ---
[facility] Anesthesia Checklist - Patient Identification Patient Identification: Arm Band - Structural Data Admitted From: Home Planned Operative Procedure/s: Pain Pump Explant/Implant Flonix Consent for Planned Operative Procedure(s) Verified: Yes Verified Documents: Surgical Consent, History and Physical - NPO Status Verified Time NPO: 00:00 - Additional verifications Anesthesia Reactions: No Hx Blood Transfusions: No Blood Transfusion Reaction: No - Airway Assessment C-Spine Mobility Assessed: Yes TMJ Mobility Assessed: Yes Dentition: Edentulous - Neurological Assessment Level of Consciousness: Awake, Alert - Anesthesia Plan Anesthesia Risk discussed: Yes Anesthesia Plan: Verified ASA Class: III Anesthesia Type: General [facility] History Medical History: Reports:: Hypertension (not on meds), Lung Disease (YUMIKO-cpap hs) Denies:: Cancer, Diabetes Mellitus Type 1, Diabetes Mellitus Type 2, Internal Pacemaker, MRSA, Seizures *Have you ever received a pneumonia vaccine?: No *Have you received a flu vaccine this season?: Yes Other Medical History: Reports: Arthritis. Denies: Blood Transfusion Reaction Anesthesia experience/problems:: None Other Surgeries: Yes: Appendectomy, Cholecystectomy, Colonoscopy, Other (total 5 back surgery). No: Pacemaker Amputation: No Fractures: No - *Social History Last grade of school completed: High school graduate Smoking Status: Former smoker Tobacco Type: cigarettes # Packs/Day (cigarettes): 1 #Yrs smoked (if former smoker): 30 Smoking End Date: 08/25/20 Alcohol Intake: never Substance Use Type: other *Occupational Status:: retired, disabled Housing: house Household Members: spouse, children *Travel in the last 8 weeks: None Family Hx:: No significant family history
--- NOTE | 2021-01-04 09:40 | P.OP_ITS ---
Date of procedure: 01/04/21 Pre-op Diagnosis:: End-of-life intrathecal pain pump system for postlaminectomy syndrome lumbar spine with lumbar radiculopathy symptoms and degenerative disc disease of lumbar spine Post-op Diagnosis:: Same Procedure performed:: Replacement intrathecal pain pump catheter and battery Surgeon:: Joseph Charles MD COMMUNITY DEVELOPMENT AIDE:: Other Anesthesia: GETA Estimated blood loss (mL): 10 Clinical Note:: This patient is a pleasant 55-year-old white male who has an intrathecal Dilaudid/bupivacaine pain pump in place. He is recently had some discrepancies in his volume at his last refill. His pump is also not working as well as previously. He continues to have increasing pain in his low back. He presents for replacement of his intrathecal pain pump system today as his Medtronic system is nearing end-of-life with a less than 12-month VIANEY. Operative findings:: None Operative note:: Informed consent was obtained and the risk and benefits of the procedure were explained to the patient. Patient was taken to the operating room placed prone on the procedure table. He was prepped and draped in sterile fashion. Dr. Dominick albarran explanted the Medtronic pain pump and tied off the catheter with 0 silk. C-arm fluoroscopy was used to view the lumbar spine. The skin and subcutaneous tissues adjacent to the L5-S1 interspace were anesthetized using lidocaine. I made an incision and dissected down to the lumbar paraspinous fascia. A 14-gauge spinal needle was inserted and advanced into the L5-S1 interspace until clear CSF was obtained. After this intrathecal catheter was inserted and advanced very easily to the T12 vertebral body. The stylette of the catheter and the needle were withdrawn. The catheter secured to the fascia with 2 anchoring devices and 2-0 Prolene. I tunneled the catheter from the back to the pump pocket and attached catheter to the pump. We were able to freely withdraw clear CSF through the side-port. Both incisions were irrigated with bacitracin solution. Both incisions were then closed with 2-0 Vicryl followed by 4-0 nylon. A wound VAC was placed over both incisions. The patient was placed in an abdominal binder and taken recovery in stable condition. The patient was programmed by the title insurance sales representative and intrathecal Dilaudid/bupivaca ine infusion was decreased to 6 mg/day and he was placed on constant flow. Patient tolerated the procedure well with no complications. Patient was discharged home neurologically intact with good relief of pain symptoms. Plan and disposition: We will follow-up with him in 1 week for wound check. We will follow-up in 2 weeks for suture removal and reprogram. If he has any problems or questions he is to call us back in the pain clinic. Condition: stable Disposition: PACU Complications:: None
--- NOTE | 2021-01-04 09:52 | HMH.OPNOTE ---
Date of procedure: 01/04/21 Pre-op Diagnosis:: Disc disease of the lumbar spine with radiculopathy, end-of-life, pain pump generator Post-op Diagnosis:: Same Procedure performed:: Removal and replacement of pain pump generator Surgeon:: Nigel Jackson MD PHYSICAL THERAPY AIDE:: Mikhail Sylvester, Harvinder Arellano, Anton Bennett, Yobany Shah, Other Anesthesia: GETA Estimated blood loss (mL): 10 Operative findings:: Not applicable Operative note:: Once adequate general endotracheal anesthesia was obtained the patient was placed prone on the operating table and his back and flank regions were prepped and draped in sterile fashion. The previous incision over the pain pump generator was opened and carried down through skin and subcutaneous tissues. Surrounding pouch also removed. Catheter ligated with a 0 silk tie and the generator removed. A paraspinal incision was made by Dr. Mota which an intrathecal catheter was passed into the intrathecal space to the area desired by Dr. Parada. The catheter was fixed the paraspinal fascia with fixation devices and 2-0 Prolene suture. Both pockets irrigated with antibiotic solution. The catheter was passed from the paraspinal incision to the pocket incision utilize a tunneling device. Catheter fixed the generator and the generator was placed in the pocket. CSF was aspirated from the generator noting patency of the system. Subcutaneous tissues closed with 2-0 Vicryl. Skin closed with 2-0 nylon over the pump and 4-0 nylon over the catheter insertion site. Both incisions were treated with local anesthesia. Wound VAC dressings and a binder applied to the wound. The patient tolerated procedure well and was taken to recovery in stable condition. Upon recovery the patient will be discharged home with follow-up 1 week remove the wound VAC system in 2 weeks removal of sutures. Antibiotic x1 week per protocol. The patient tolerated the procedure well. In the note on Marquis Urrutia thank you Condition: stable Disposition: PACU Complications:: None
--- NOTE | 2021-01-05 08:29 | P.PN_ITS ---
[facility] Anesthesia Record Part II Discharge Time: 11:18 Destination: Surgical Day Care (OP Surgery) PACU nurse assessment reviewed?: Yes Patient Condition:: Good Anesthesia Complications:: None Swallowing reflex intact?: Yes Cyanosis?: No Blood Pressure: 141/75 Pulse Rate: 65 Temperature: 97.5 F Mental Status: Alert & Oriented Pain level:: 0 Nausea and/or vomitting:: None Intake, IV Amount: 1,500
[2021-01-05 08:30] VITALS: BP 141/75; PULSE 65; TEMP 36.4
--- NOTE | 2021-01-05 12:11 | P.PN_ITS ---
[facility] Anesthesia Record Part I Intake, IV Amount: 1,500 Estimated blood loss (mL): 1 Urine output (mL): 0 Blood Pressure: 117/57 SaO2: 93 Pulse Rate: 88 Respiratory Rate: 12 Temperature: 98.6 F Patient is:: Awake, Drowsy
[2021-01-05 12:12] VITALS: BP 117/57; PULSE 88; RESP 12; TEMP 37; O2SAT 93
== END 2021-01-04 12:35 | disposition home or self-care (01) ==
LOC: OR 06:45
PROVIDERS: Anesthesiology; PCP Internal Medicine; Visit Provider Surgery
PROC: (CPT 62350; principal; 2021-01-04 08:00)
DX: M51.16 Intervertebral disc disorders with radiculopathy, lumbar region (principal); M96.1 Postlaminectomy syndrome, not elsewhere classified; Z45.1 Encounter for adjustment and management of infusion pump; I10 Essential (primary) hypertension; G47.33 Obstructive sleep apnea (adult) (pediatric); Z87.891 Personal history of nicotine dependence; M19.90 Unspecified osteoarthritis, unspecified site; K21.9 Gastro-esophageal reflux disease without esophagitis; F41.9 Anxiety disorder, unspecified; F32.9 Major depressive disorder, single episode, unspecified; Z88.8 Allergy status to other drugs, medicaments and biological substances; Z79.899 Other long term (current) drug therapy
CPT/HCPCS: 62362; 62350; 96374; C1755; C1772; J2405; J3370

== ENCOUNTER → 2021-01-12 12:53 | Outpatient (POV) | payer OTHER, MEDICARE, SELFPAY ==
[2021-01-12 13:17] VITALS: BP 145/75; PULSE 74; RESP 18; O2SAT 98; BMI 38.0
--- NOTE | 2021-01-12 13:45 | HMH.PMPROC ---
- Procedure Date: 01/12/21 Time: 13:45 Anesthesiologist:: Carley Sen APRN Complications:: None Pre-procedure Diagnosis:: Degenerative disc disease lumbar spine with lumbar radiculopathy symptoms and back pain Post-procedure Diagnosis:: Same Indications for Procedure:: Patient is a pleasant 55-year-old white male who presents today for intrathecal pain pump adjustment. Patient had an implant 1 week ago. Since then he has had quite a bit of nausea. He was given a half a milligram bolus of medication which alleviated his nausea. Patient had been decreased to 6 mg of Dilaudid/bupivacaine a day. Patient's current pain is a 6 out of 10. We will set up his PTC today. He is also developed thrush from the antibiotics. We will call in [employer] for him. Due to his nausea we will go ahead and send him in Phenergan for short period of time as well. He denies any side effects to his medication. Procedure Details:: Informed consent was obtained and the risk and benefits of the procedure were explained to the patient. The patient was taken to the procedure room where noninvasive monitoring was placed including noninvasive blood pressure cuff and pulse oximeter. Patient's pump was interrogated and reprogrammed. The infusion rate was changed to 6.5 mg a day of Dilaudid and his PTC was set up at 0.5 mg per activation up to 4 times a day. The patient tolerated the procedure well. Plan and Disposition:: We will see the patient back in 2 weeks and have his stitches removed. Patient's been instructed to call the office if he has any issues prior to his next appointment. Dr. Charles has reviewed this note and agrees with this plan of care. This note was dictated using voice recognition software and may contain errors or omissions
== END ==
PROVIDERS: PCP Internal Medicine; Visit Provider Clinical Nurse Specialist Family Health
DX: M51.16 Intervertebral disc disorders with radiculopathy, lumbar region (principal); Z45.1 Encounter for adjustment and management of infusion pump
CPT/HCPCS: 62368

== ENCOUNTER → 2021-01-23 13:38 | Outpatient (POV) | payer OTHER, MEDICARE, SELFPAY ==
[2021-01-23 13:40] VITALS: BP 152/74; PULSE 67; RESP 18; TEMP 36.6; O2SAT 98; BMI 38.0
--- NOTE | 2021-01-23 13:57 | P.CONS_ITS ---
[facility] Pain Management SOAP Note Subjective:: Pleasant 55-year-old white male who presents today for intrathecal pain pump stitch removal. Patient has no sign symptoms of infection. Patient stitches were removed his incisions are healed and well approximated. Patient rates his pain a 6 out of 10 when he standing and walking and a 2 out of 10 when he sitting. Patient overall doing extremely well his nausea has subsided and he is no longer having any issues. 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 ROS General: no recent weight change, no fever, no sleep disturbances Respiratory: no cough, no shortness of air, no recurring pulmonary infections Cardiovascular/Peripheral Vascular: No chest pain, No palpitations, no edema, no shortness of breath. Gastrointestinal: no new onset incontinence, normal bowel movements reported Genitourinary: no new onset incontinence Musculoskeletal: Back pain, leg pain Psychiatric: normal mood/ affect Neurological: [denies new onset weakness in extremities], [denies new onset balance issues] Objective:: Physical Exam General: Alert and oriented x3, no acute distress, pleasant and cooperative, [on room air] Lungs: Resps E/U, Symmetrical chest expansion, Eyes: PERRL Musculoskeletal: Flexion and extension of lumbar against spine somewhat guarded secondary to pain, deep tendon reflexes normal, strength in upper and lower extremities [5/5], [abnormal gait noted] Neurological: speech clear, ep technologist equal, no gross sensory deficits Assessment:: Degenerative disc disease lumbar spine lumbar radiculopathy, back pain, postlaminectomy syndrome Plan:: The patient back at his next intrathecal pain pump refill and reprogram he has been instructed to call the office if he has any issues prior to his next appointment. Dr. Charles has reviewed this note and agrees with this plan of care. This note was dictated using voice recognition software and may contain errors or omissions [facility] History I have reviewed the patient's past medical history: Yes Medical History: Reports:: Hypertension (not on meds), Lung Disease (YUMIKO-cpap hs) Denies:: Cancer, Diabetes Mellitus Type 1, Diabetes Mellitus Type 2, Internal Pacemaker, MRSA, Seizures *Have you ever received a pneumonia vaccine?: Yes *Have you received a flu vaccine this season?: Yes Other Medical History: Reports: Arthritis. Denies: Blood Transfusion Reaction Other Surgeries: Yes: Appendectomy, Cholecystectomy, Colonoscopy, Other (total 5 back surgery). No: Pacemaker Amputation: No Fractures: No - *Social History Smoking Status: Former smoker Tobacco Type: cigarettes # Packs/Day (cigarettes): 1 #Yrs smoked (if former smoker): 30 Alcohol Intake: never Substance Use Type: other *Occupational Status:: retired Housing: house Household Members: spouse, children *Travel in the last 8 weeks: None Family Hx:: No significant family history
--- NOTE | 2021-02-10 16:42 | PC.NURSE ---
calld in Rx for robaxin 500mg bid with 5 refills called into [facility] in [place] per provider order
== END ==
PROVIDERS: PCP Internal Medicine; Visit Provider Clinical Nurse Specialist Family Health
DX: M51.16 Intervertebral disc disorders with radiculopathy, lumbar region (principal); M96.1 Postlaminectomy syndrome, not elsewhere classified
CPT/HCPCS: 99212; G0463

== ENCOUNTER → 2021-02-27 14:58 | Day surgery (SDC) | payer OTHER, MEDICARE, SELFPAY ==
[2021-02-27 15:09] VITALS: BP 108/69; PULSE 71; RESP 18; TEMP 36.7; O2SAT 97; BMI 24.1
[2021-02-27 15:27] VITALS: BP 166/78; PULSE 72; RESP 18; O2SAT 94
[2021-02-27 15:31] VITALS: BP 152/83; PULSE 77; RESP 18; O2SAT 95
--- NOTE | 2021-03-02 08:06 | P.PCN_ITS ---
- Procedure Date: 02/27/21 Time: 13:20 Anesthesiologist:: Yenny Wise APRN Complications:: None Pre-procedure Diagnosis:: Degenerative disc disease lumbar spine with lumbar radiculopathy symptoms, back pain, postlaminectomy syndrome lumbar spine Post-procedure Diagnosis:: Same Indications for Procedure:: Patient is a 55-year-old white male who presents today for intrathecal pain pump refill and reprogram. Patient is being treated for degenerative disc disease lumbar spine with lumbar radiculopathy symptoms. Patient is complaining today of worsening numbness to his lower extremities. He says that he has been having falls due to numbness in his legs. He is currently on Dilaudid 6.5 mg/day and bupivacaine at 6.5 mg/day and does want to decrease his concentration as well as his dosing today. The patient's concentration of bupivacaine is 30 mg/mL. He rates his pain a 3 or 4 out of 10 today. His Will #[id number] has been reviewed and is appropriate. Drug screen is appropriate. Physical exam General: Alert and oriented x3, no acute distress, pleasant and cooperative, [on room air] Lungs: Respirations even and unlabored, symmetrical chest expansion Eyes: PERRL Musculoskeletal: Flexion and extension of lumbar spine somewhat guarded secondary to pain, deep tendon reflexes normal, strength in upper and lower extremities [5/5], [abnormal gait noted] Neurological: Speech clear, customer support coordinator equal, no gross sensory deficit Procedure Details:: Informed consent was obtained and the risk and benefits of the procedure were explained to the patient. The patient was taken to the procedure room where noninvasive monitoring was placed including noninvasive blood pressure cuff and pulse oximeter. Patient's pump was interrogated. The area over the pump was cleansed with chlorhexidine as a cleansing solution. In sterile fashion the pump was accessed with a 22-gauge needle. Approximately 8.5 mls of the pump solution was removed and discarded appropriately. The pump was then refilled with 20 mL's of Dilaudid 30 mg/mL and bupivacaine 30 mg/mL. The needle was withdrawn and a bandage was placed over the puncture site. The infusion rate was reprogrammed at Dilaudid 5.85 mg/day and bupivacaine 5.85 mg/day. The patient tolerated well with no complication. Plan and Disposition:: We will plan to decrease the patient's concentration of bupivacaine with his next refill to bupivacaine at 15 mg/mL. The patient is having falls. We will order the medication and get him back into the clinic the following week for a refill to prevent any further falls. Patient has been instructed to contact the clinic with any concerns before the next appointment. Dr. Charles has reviewed this note and agrees with this plan of care. This note was dictated using voice recognition software and make contain errors or omissions.
== END ==
PROVIDERS: PCP Internal Medicine; Visit Provider Clinical Nurse Specialist Family Health
DX: M51.16 Intervertebral disc disorders with radiculopathy, lumbar region (principal); M96.1 Postlaminectomy syndrome, not elsewhere classified
CPT/HCPCS: 62370

== ENCOUNTER 2021-03-10 13:06 | Day surgery (SDC) | payer OTHER, MEDICARE, SELFPAY ==
[2021-03-10 13:39] VITALS: BP 133/72; PULSE 63; RESP 20; TEMP 36.1; O2SAT 98; BMI 36.2
[2021-03-10 15:04] VITALS: BP 142/79; PULSE 72; RESP 18; O2SAT 97
[2021-03-10 15:06] VITALS: BP 148/73; PULSE 74; RESP 18; O2SAT 95
[2021-03-10 15:30] VITALS: BP 139/71; PULSE 63; RESP 20; O2SAT 98
--- NOTE | 2021-03-10 15:42 | HMH.PMPROC ---
- Procedure Date: 03/10/21 Time: 15:42 Anesthesiologist:: Sophie Glover MD Complications:: None Pre-procedure Diagnosis:: Degenerative disc disease of lumbar spine, lumbar radiculopathy Post-procedure Diagnosis:: Same Indications for Procedure:: This is a very pleasant 55-year-old white male who presents today for intrathecal pump refill and reprogramming. He reports that overall his pain pump is helping manage his chronic pain. He previously noted that the previous medication combination was making his leg go numb. However he says this is slowly improving as they have gone down on the dose. He is currently on Dilaudid 30 mg/mL and bupivacaine 30 mg/mL on constant flow plus PTC. He is got 0.5 mg boluses 4 times a day with 6-hour lockout, with a total max daily dose of 7.76 mg/day. Procedure Details:: Informed consent was obtained and the risks and benefits of the procedure was explained to the patient. The patient was taken to the procedure room. The pump was interrogated. The area over the pump was prepped using ChloraPrep. The pump was accessed with a 22-gauge needle. Approximately [7] mL's of the intrathecal solution was withdrawn and discarded. The pump was then refilled with 20 mL's of intrathecal Dilaudid 30 mg/mL and bupivacaine 15 mg/mL]. The pump was interrogated and the infusion was [unchanged]. He will continue to receive his PTC with 0.5 mg boluses 4 times a day with a 6-hour lockout, with a total maximum daily dose of 7.76 mg/day. The patient tolerated the procedure well with no complications. Next refill date is on [May 13, 2021]. Plan and Disposition:: We will follow-up with this patient on her before May 13, 2021 for his next pump refill and reprogramming. We will reevaluate pain symptoms at that time and make any adjustments if needed.
== END 2021-03-10 15:32 | disposition home or self-care (01) ==
LOC: SC.PAINP 13:10
PROVIDERS: PCP Internal Medicine; Visit Provider Anesthesiology Pain Medicine
DX: M51.16 Intervertebral disc disorders with radiculopathy, lumbar region (principal); R56.9 Unspecified convulsions; I10 Essential (primary) hypertension; G47.33 Obstructive sleep apnea (adult) (pediatric); M19.90 Unspecified osteoarthritis, unspecified site
CPT/HCPCS: 62370

== ENCOUNTER 2021-05-08 13:50 | Day surgery (SDC) | payer OTHER, MEDICARE, SELFPAY ==
[2021-05-08 14:18] VITALS: BP 150/79; PULSE 63; RESP 20; O2SAT 97; BMI 36.1
[2021-05-08 14:21] VITALS: BP 156/79; PULSE 60; RESP 18; O2SAT 95
[2021-05-08 14:22] VITALS: BP 156/80; PULSE 60; RESP 18; O2SAT 95
--- NOTE | 2021-05-08 14:32 | P.PCN_ITS ---
- Procedure Date: 05/08/21 Time: 14:32 Anesthesiologist:: Yenny Wise APRN Complications:: None Pre-procedure Diagnosis:: Degenerative disc disease lumbar spine with lumbar radiculopathy symptoms Post-procedure Diagnosis:: Same Indications for Procedure:: Patient is a pleasant 56-year-old white male who presents today for intrathecal pain pump refill and reprogram. He has been treated for degenerative disc disease lumbar spine with lumbar radiculopathy symptoms. Patient is currently on a dose of Dilaudid at 5.85 mg/day and bupivacaine at 2.925 mg/day. He is complaining of worsening leg pain. He says he is having excruciating cramps in his legs. He says that it is at the point that he worries he may need to go to the emergency room. He is getting relief with his low back pain, however, is also complaining of severe numbness into his lower extremities. He says he does have to have help in the mornings getting up from the bed due to numbness in his legs. We did ravin decreasing his concentration of bupivacaine. I think the patient would benefit with a decrease in his bupivacaine at the next visit. He does want to do a small decrease in the concentration so that his pain does not worsen. His pain is a 6 out of 10 today. Physical exam General: Alert and oriented x3, no acute distress, pleasant and cooperative, [on room air] Lungs: Respirations even and unlabored, symmetrical chest expansion Eyes: PERRL Musculoskeletal: Flexion and extension of lumbar [spine] somewhat guarded secondary to pain, strength in upper and lower extremities [5/5], [antalgic gait noted] Neurological: Speech clear, [stonemason supervisor equal], no gross sensory deficit Procedure Details:: Informed consent was obtained and the risk and benefits of the procedure were explained to the patient. The patient was taken to the procedure room where noninvasive monitoring was placed including noninvasive blood pressure cuff and pulse oximeter. Patient's pump was interrogated. The area over the pump was cleansed with chlorhexidine as a cleansing solution. In sterile fashion the pump was accessed with a 22-gauge needle. Approximately 15 mls of the pump s olution was removed and discarded appropriately. The pump was then refilled with 20 mL's of Dilaudid 30 mg/mL and bupivacaine 15 mg/mL. The needle was withdrawn and a bandage was placed over the puncture site. The infusion rate was reprogrammed at Dilaudid at 5.85 mg/day bupivacaine at 2.925 mg/day. The patient tolerated well with no complication. Plan and Disposition:: Patient did have a discrepancy in his intrathecal volume. The patient's telemetry noted the patient to have 6.9 mL out, however, he did have 15 mL out of his intrathecal volume today. Patient's pain has changed. He feels the pain is worsening. We will schedule him for a catheter dye study. The patient does give himself boluses which he says are no longer beneficial for his pain. He is having significant numbness into his lower extremities. We discussed decreasing his bupivacaine concentration. He is very nervous about decreasing the dosing quickly. He is worried his pain will worsen. We will decrease him to bupivacaine 12 mg/mL with his next intrathecal refill. We will see him back after his catheter dye study for reevaluation of symptoms. Patient has been instructed to contact the clinic with any concerns before the next appointment. Dr. Charles has reviewed this note and agrees with this plan of care. This note was dictated using voice recognition software and make contain errors or omissions.
[2021-05-08 14:39] VITALS: BP 158/82; PULSE 60; RESP 18; O2SAT 98
== END 2021-05-08 14:40 | disposition home or self-care (01) ==
LOC: SC.PAINP 13:55
PROVIDERS: PCP Internal Medicine; Visit Provider Clinical Nurse Specialist Family Health
DX: M51.16 Intervertebral disc disorders with radiculopathy, lumbar region (principal); Z45.1 Encounter for adjustment and management of infusion pump; I10 Essential (primary) hypertension; G47.33 Obstructive sleep apnea (adult) (pediatric); M19.90 Unspecified osteoarthritis, unspecified site; R56.9 Unspecified convulsions; K21.9 Gastro-esophageal reflux disease without esophagitis; N40.0 Benign prostatic hyperplasia without lower urinary tract symptoms; F41.9 Anxiety disorder, unspecified; F32.9 Major depressive disorder, single episode, unspecified; D64.9 Anemia, unspecified; Z88.8 Allergy status to other drugs, medicaments and biological substances; Z87.891 Personal history of nicotine dependence
CPT/HCPCS: 62370

== ENCOUNTER 2021-05-12 12:15 | Day surgery (SDC) | payer OTHER, MEDICARE, SELFPAY ==
[2021-05-12 12:19] VITALS: BP 140/82; PULSE 60; RESP 18; TEMP 36.6; O2SAT 98; BMI 37.7
[2021-05-12 13:09] VITALS: BP 145/85; PULSE 86; RESP 18; O2SAT 96
[2021-05-12 13:18] VITALS: BP 142/80; PULSE 78; RESP 18; O2SAT 98
[2021-05-12 13:54] VITALS: BP 151/92; PULSE 60; RESP 20; O2SAT 98
--- NOTE | 2021-05-12 14:49 | P.PCN_ITS ---
- Procedure Date: 05/12/21 Time: 14:49 Anesthesiologist:: Sophie Glover MD Complications:: None Pre-procedure Diagnosis:: Degenerative disc disease of the lumbar spine, lumbar radiculopathy Post-procedure Diagnosis:: Same Indications for Procedure:: Patient is a very pleasant 56-year-old white male who presents today with chronic low back pain rating into his legs related to the above diagnosis. He has an intrathecal pain pump with a flowonix pump system with Dilaudid 30 mg/mL at 5.85 mg/day and bupivacaine 15 at 2.925 mg/day. He has been having discrepancies in his pain pump during refills with actual pump mixture being greater than expected from telemetry. He denies any changes in regards to her worsening pain recently. He feels that the pain pump is helping adequately m anage his pain at this time. Plan for today is for the patient to undergo a catheter dye study to evaluate the catheter patency and position. Procedure Details:: Informed consent was obtained and the risks and benefits of the procedure was explained to the patient. The patient was taken to the procedure room. The pump was interrogated. The area over the access site was prepped using ChloraPrep. The catheter access port was accessed with a 22-gauge needle. [2] mL's of the intrathecal solution and CSF was withdrawn and discarded. Next, 3 mL of dye was incrementally injected into the catheter access port to visualize catheter patency and correct positioning in both AP and lateral fluoroscopic views. There appears to be 2 possible areas of catheter kinking close to the pump. Furthermore there is an area near the L4 vertebral body with contrast dye surrounding the catheter concerning for possible catheter fracture. The catheter tip was visualized at the bottom of the 12 vertebral body in an anterior position. The old catheter from the previous pump was also visualized with the catheter tip near the bottom of T12 vertebral body. Next, 2 mL of preservative-free normal saline was injected into the catheter access port to flush. The pump was then reinterrogated. The patient tolerated the procedure well with no complications. Plan and Disposition:: I discussed catheter dye study findings with the patient. Given that he has not noticed any change in his pain symptoms including no worsening of pain, we will follow-up with this patient next week to perform an intrathecal volume check in the pump reservoir.
== END 2021-05-12 13:55 | disposition home or self-care (01) ==
LOC: SC.PAINP 12:16
PROVIDERS: PCP Internal Medicine; Visit Provider Anesthesiology Pain Medicine
DX: M51.16 Intervertebral disc disorders with radiculopathy, lumbar region (principal); Z45.1 Encounter for adjustment and management of infusion pump
CPT/HCPCS: 61070; C1772; Q9966

== ENCOUNTER 2021-05-19 12:28 | Outpatient (POV) | payer OTHER, MEDICARE, SELFPAY ==
[2021-05-19 12:52] VITALS: PULSE 62; RESP 20; O2SAT 99
[2021-05-19 12:57] VITALS: BP 141/73; PULSE 66; RESP 18; O2SAT 98; BMI 38.0
[2021-05-19 13:15] VITALS: BP 141/73; PULSE 66; RESP 20; O2SAT 98
--- NOTE | 2021-05-19 13:19 | HMH.PMPROC ---
- Procedure Date: 05/19/21 Time: 13:19 Anesthesiologist:: Joseph Charles MD Complications:: None Pre-procedure Diagnosis:: Degenerative disc disease of lumbar spine with lumbar radiculopathy symptoms Post-procedure Diagnosis:: Same Indications for Procedure:: Patient is a pleasant 56-year-old white male who we are treating for low back pain with lumbar radiculopathy symptoms. He did have a discrepancy at his last pump refill. This was checked by Dr. Glover most recently on May 12 where he did not have any discrepancies. We will check his pump again and make adjustments to his infusion today. He does have some increasing pain. We will check catheter placement as well. Procedure Details:: Analysis and reprogramming of intrathecal pain pump Informed consent was obtained and the risk and benefits of the procedure were explained to the patient. Patient was taken the procedure room. The area over the pump was prepped using ChloraPrep. The pump was accessed with a 22-gauge needle. Expected reservoir volume was 17 mL. Actual reservoir volume was 17 mL. We did put the same medicine back in the pump. The pump was then reprogrammed and daily dose was increased to 7 mg/day of intrathecal Dilaudid/bupivacaine. PTC boluses were increased to 0.7 mg/day. Patient tolerated the procedure well with no complications. Plan and Disposition:: We will follow-up with this patient in 1 week. Will reevaluate his symptoms at that time.
== END 2021-05-19 13:16 | disposition home or self-care (01) ==
LOC: SC.PAIN 12:30
PROVIDERS: PCP Internal Medicine; Visit Provider Anesthesiology
DX: M51.16 Intervertebral disc disorders with radiculopathy, lumbar region (principal); Z45.1 Encounter for adjustment and management of infusion pump
CPT/HCPCS: 62370

== ENCOUNTER → 2021-06-02 09:59 | Outpatient (POV) | payer OTHER, MEDICARE, SELFPAY ==
[2021-06-02 10:44] VITALS: BP 144/81; PULSE 67; RESP 18; TEMP 36.3; O2SAT 96; BMI 37.9
--- NOTE | 2021-06-02 10:50 | HMH.PMPROC ---
- Procedure Date: 06/02/21 Time: 10:50 Anesthesiologist:: Joseph Charles MD Complications:: None Pre-procedure Diagnosis:: Degenerative disc disease of lumbar spine with lumbar radiculopathy symptoms Post-procedure Diagnosis:: Same Indications for Procedure:: Patient is a pleasant 56-year-old white male who we are treating for low back pain with lumbar radiculopathy symptoms. We did make adjustments to his pump at his last visit. Over last few days he started having some increasing numbness with increasing pain and cramping in his legs. This may be attributed to the increase bupivacaine. We will decrease his pump back down today to see if this helps with his pain symptoms. Procedure Details:: Analysis and reprogramming of intrathecal pain pump Informed consent was obtained the risk and benefits of the procedure were explained to the patient. Patient was taken the procedure room. The pump was interrogated. Intrathecal Dilaudid/bupivacaine infusion was decreased to 6 mg/day of the Dilaudid and 3 mg/day of intrathecal bupivacaine patient tolerated procedure well with no complications. Plan and Disposition:: We will follow-up with him in 2 weeks. Will reevaluate his symptoms at that time.
== END ==
PROVIDERS: PCP Internal Medicine; Visit Provider Anesthesiology
DX: M51.16 Intervertebral disc disorders with radiculopathy, lumbar region (principal); Z45.1 Encounter for adjustment and management of infusion pump; Z88.5 Allergy status to narcotic agent; Z88.8 Allergy status to other drugs, medicaments and biological substances
CPT/HCPCS: 62368

== ENCOUNTER 2021-07-03 13:05 | Day surgery (SDC) | payer OTHER, MEDICARE, SELFPAY ==
[2021-07-03 13:11] VITALS: BP 137/81; PULSE 73; RESP 20; TEMP 36.8; O2SAT 97; BMI 37.3
--- NOTE | 2021-07-03 13:12 | HMH.PMPROC ---
- Procedure Date: 07/03/21 Time: 13:12 Anesthesiologist:: Yenny Wise APRN Complications:: None Pre-procedure Diagnosis:: Degenerative disc disease lumbar spine with lumbar radiculopathy symptoms Post-procedure Diagnosis:: Same Indications for Procedure:: Patient is a 56-year-old white male who presents today for intrathecal pain pump refill and reprogram. The patient has been treated for degenerative disc disease lumbar spine with lumbar radiculopathy symptoms. He does have chronic low back pain. The patient was decreased with his bupivacaine at last visit due to some numbness in his lower extremities. He is doing well overall. He is currently on Dilaudid/bupivacaine 3 mg/day. He does not need any changes. Physical exam General: Alert and oriented x3, no acute distress, pleasant and cooperative Lungs: Respirations even and unlabored, symmetrical chest expansion Eyes: PERRL Musculoskeletal: Flexion and extension of lumbar [spine] somewhat guarded secondary to pain, [antalgic gait noted] Neurological: Speech clear, no gross sensory deficit Procedure Details:: Informed consent was obtained and the risk and benefits of the procedure were explained to the patient. The patient was taken to the procedure room where noninvasive monitoring was placed including noninvasive blood pressure cuff and pulse oximeter. Patient's pump was interrogated. The area over the pump was cleansed with chlorhexidine as a cleansing solution. In sterile fashion the pump was accessed with a 22-gauge needle. Approximately 1.5 mls of the pump solution was removed and discarded appropriately. The pump was then refilled with 20 mL's of Dilaudid 30 mg per mill and bupivacaine 15 mg per mill. The needle was withdrawn and a bandage was placed over the puncture site. The infusion rate was reprogrammed at Dilaudid/bupivacaine 3 mg/day. The patient tolerated well with no complication. Plan and Disposition:: We will see the patient back in the clinic at the next intrathecal refill. Patient has been instructed to contact the clinic with any concerns before the next appointment. Dr. Charles has reviewed this note and agrees with this plan of care. This note was dictated using voice recognition software and make contain errors or omissions.
[2021-07-03 13:19] VITALS: BP 152/59; PULSE 74; RESP 18; O2SAT 97
[2021-07-03 13:21] VITALS: BP 156/70; PULSE 75; RESP 18; O2SAT 97
[2021-07-03 13:40] VITALS: BP 138/81; PULSE 78; RESP 20; O2SAT 95
== END 2021-07-03 13:41 | disposition home or self-care (01) ==
LOC: SC.PAINP 13:06
PROVIDERS: PCP Internal Medicine; Visit Provider Clinical Nurse Specialist Family Health
DX: M51.16 Intervertebral disc disorders with radiculopathy, lumbar region (principal); Z45.1 Encounter for adjustment and management of infusion pump
CPT/HCPCS: 95991

== ENCOUNTER → 2021-07-17 09:00 | Outpatient (POV) | payer OTHER, MEDICARE, SELFPAY ==
[2021-07-17 09:13] VITALS: BP 152/58; PULSE 65; RESP 18; O2SAT 96; BMI 39.3
--- NOTE | 2021-07-17 11:54 | HMH.PMPROC ---
- Procedure Date: 07/17/21 Time: 11:54 Anesthesiologist:: Yenny Wise APRN Complications:: None Pre-procedure Diagnosis:: Degenerative disc disease lumbar spine with lumbar radiculopathy symptoms, muscle spasms Post-procedure Diagnosis:: Same Indications for Procedure:: Patient is a 56-year-old white male who presents today for intrathecal pain pump adjustment. The patient is having severe muscle spasms today. He says that the pain is in his low back left leg and perineal area. He reports that his muscle spasms have been ongoing since Saturday. He is accompanied by his today. His has contacted Dr. Charles who did inform the patient that he could increase his Robaxin dose at this time. The patient is prescribed Robaxin 500 mg 1 tablet p.o. [address] Charles did advise the patient that he could take the medication with 4 tablets up to 3 times daily. The patient has been taking the medication and says that he has not had any relief. He is yelling out due to pain with the acute spasms. He says this is unlike his typical muscle spasms. He says that he is unable to stand or walk due to the pain. He does report to have taken 4 tablets prior to the drive here today. He lives in [facility] which is approximately 1 hour away. The patient does have an intrathecal pain pump with Dilaudid at 6 mg/day and bupivacaine at 3 mg/day. Patient was discussed thoroughly with Dr. Charles. Dr. Charles would like to give the patient a bolus while in the clinic and increase his Robaxin dose. The patient does rate his pain a 10 out of 10. He describes the pain as a labor spasms. Physical exam General: Alert and oriented x3, no acute distress, pleasant and cooperative Lungs: Respirations even and unlabored, symmetrical chest expansion Eyes: PERRL Musculoskeletal: Flexion and extension of lumbar [spine] somewhat guarded secondary to pain, [antalgic gait noted] Neurological: Speech clear, no gross sensory deficit Procedure Details:: Informed consent was obtained and the risk and benefits of the procedure were explained to the patient. Patient was taken to the procedure room where noninvasive monitoring was placed including noninvasive blood pressure cuff and pulse oximeter. Patient's pump was interrogated and was reprogrammed to Dilaudid to 6 mg/day and bupivacaine 3 mg/day, bolus given at 0.6 mg x 1.. The patient tolerated the procedure well with no complications. Plan and Disposition:: Patient is in significant pain in the clinic today. He says that it is causing him to have difficulty with urination and is also causing him to have severe perineal pain. He reports his pain to be similar to labor spasms. He says that the Robaxin is not giving him much relief. He was given a bolus in the clinic with no relief. I did discuss the patient with Dr. Charles once again and Dr. Charles has advised the patient to go to the emergency room to be managed with possible IV medication until his acute phase has subsided. Patient is in agreement. We will plan to see him back after his visit to the emergency room for reevaluation. We will reorder patient's Robaxin 500 mg 1 tablet p.o. 3 times daily. He has been advised to use caution with increasing the medication. Risks and benefits of the medication have been explained in detail to the patient. If side effects do present with the medication, patient has been advised to stop the medication immediately and call the clinic. The patient has been advised to consult with his/her primary care provider and pharmacist regarding drug-drug interaction of medications currently prescribed. Risks and benefits of the medication have been explained in detail to the patient. The patient does understand the risk of dependence on the medication when given over a prolonged period. Patient has been advised of risks of oversedation with the prescribed medication. [facility]
== END ==
PROVIDERS: Visit Provider Clinical Nurse Specialist Family Health
DX: M51.16 Intervertebral disc disorders with radiculopathy, lumbar region (principal); Z45.1 Encounter for adjustment and management of infusion pump; M62.838 Other muscle spasm
CPT/HCPCS: 62368

== ENCOUNTER → 2021-07-20 08:10 | Outpatient (POV) | payer OTHER, MEDICARE, SELFPAY ==
[2021-07-20 08:24] VITALS: PULSE 76; RESP 18; O2SAT 96; BMI 40.0
--- NOTE | 2021-07-20 08:32 | HMH.PAINSOAP ---
[facility] Pain Management SOAP Note Subjective:: Patient is a 56-year-old white male who presents today for continued muscle spasms. He was seen in the clinic on 08/05/2021. At that time, the patient was having severe muscle spasms that were intermittent. He would scream out in the clinic. He says that its pain in his perineal area and going into the left leg. Patient did go to his primary care provider after leaving our clinic due to swelling in his lower extremities. He was concerned that he had blood clots in bilateral lower extremities. After further work-up he was negative for any blood clots. Patient was advised after leaving the clinic on 07/17/2021 to go to the emergency room so that he could be better managed with inpatient care, but did not go to the emergency room until last night. The patient did go to [facility]. The reports that the ER was not familiar with intrathecal pump and therefore advised the patient to return to the clinic. The reports that she did call Dr. Charles early this a.m. and he did advise the patient to return to the clinic. They did report to Dr. Charles that he got significant relief?was able to sleep, after receiving a bolus of 0.6 mg of Dilaudid/bupivacaine in the clinic. The patient is having spasms while in the clinic. He does have a spinal cord stimulator that is currently turned off. He does rate his pain a 10 out of 10. He is not having any current changes in bowel or bladder habit. Review of Systems General: No recent weight changes, no fever, no sleep disturbances Respiratory: No cough, no shortness of air, no recurring pulmonary infections Cardiovascular/peripheral vascular: No chest pain, no palpitations, no edema, no shortness of breath Gastrointestinal: No new onset incontinence, normal bowel movements reported Genitourinary: No new onset incontinence Musculoskeletal: Low back pain with radiation into left leg with muscle spasms severe with new onset swelling bilateral lower extremities Psychiatric: [Normal mood/affect] Neurological: Weakness bilateral lower extremities Objective:: Physical exam General: Alert and oriented x3, grimacing and yelping Lungs: Respirations even and unlabored, symmetrical chest expansion Eyes: PERRL Musculoskeletal: Flexion and extension of lumbar [spine] somewhat guarded secondary to pain, [antalgic gait noted] Neurological: Speech clear, no gross sensory deficit Assessment:: Degenerative disc disease lumbar spine with lumbar radiculopathy symptoms, acute muscle spasms Plan:: The patient is currently on Robaxin she is yet and has taken all of his prescription. He has taken his entire prescription at this time. The patient was discussed in detail with Dr. Charles this morning. Dr. Charles did feel it was appropriate to send the patient to the emergency room here at [facility]. We did increase the patient's boluses to 0.6 mg up to 8 times daily, as the patient did report he got sleep after getting the bolus while in the clinic on 07/17/2021. Patient is grimacing and yelping in pain in the clinic. He is rating his pain a 10 out of 10. The emergency room was contacted regarding admission of the patient. Dr. Charles has asked the admitting physician to contact him with a further plan of care. Dr. Charles does plan to perform a catheter dye study tomorrow with the patient for assessment of pump and catheter. He will also assess the leads of the stimulator at that time. The stimulator is currently turned off. Patient has been instructed to contact the clinic with any concerns before the next appointment. Dr. Charles has reviewed this note and agrees with this plan of care. This note was dictated using voice recognition software and make contain errors or omissions. [facility] History I have reviewed the patient's past medical history: Yes Medical History: Reports:: Hypertension, Lung Disease ([id number]) Denies:: Cancer, Diabetes Mellitus Type
== END ==
PROVIDERS: Visit Provider Clinical Nurse Specialist Family Health
DX: M51.16 Intervertebral disc disorders with radiculopathy, lumbar region (principal); M62.838 Other muscle spasm; Z45.1 Encounter for adjustment and management of infusion pump
CPT/HCPCS: 62368

== ENCOUNTER 2021-07-20 08:35 | Observation (INO) | payer OTHER, MEDICARE, SELFPAY ==
[2021-07-20] VITALS (12 sets, daily range): BP systolic 120–159; BP diastolic 57–83; PULSE 61–81; RESP 16–24; TEMP 36.4–36.9; O2SAT 94–100; BMI 39.3; BMI 38.9
--- NOTE | 2021-07-20 08:40 | PC.NURSE ---
A message left with Dr Charles at this time to return call to ED physician
--- NOTE | 2021-07-20 08:59 | HMH.EDGENADL ---
ED Disposition Clinical Impression: Intractable pain Disposition: Admitted As Inpatient Condition on Discharge: Fair Referrals: Provider,Referral, [Primary Care Provider] - - Critical Care Critical Care Time: No Attestation: On 07/20/21, the high probability of a clinically significant, sudden or life threatening deterioration of the following system(s) required my full and direct attention, intervention and personal management. The time I documented below is in addition to time spent performing reported procedures but includes the following listed in this critical care notation. Medical Decision Making - Medical Records Medical records reviewed: Yes: I reviewed the patient's medical records. - Will Inquiry Pt receiving controlled substance: No Vital Signs: 07/20/21 08:35 Temperature 98.1 F Temperature Source Oral Pulse Rate [Left Radial] 64 Respiratory Rate 18 Blood Pressure [Right Arm] 159/83 H Blood Pressure Mean [Right Arm] 108 Blood Pressure Source [Right Arm] Automatic Cuff Blood Pressure Position [Right Arm] Sitting 02 Sat by Pulse Oximetry 96 Oxygen Delivery Method Room Air - Lab Data Lab Results 07/20/21 08:54: WBC 8.2, RBC 4.31 L, Hgb 13.4 L, Hct 41.6 L, MCV 96.4 H, MCH 31.0, MCHC 32.2, RDW 12.8, Plt Count 249, MPV 7.5, Neut % (Auto) 74.3, Lymph % (Auto) 18.0, [place] % (Auto) 6.1, Eos % (Auto) 1.0, Baso % (Auto) 0.6, Neut # (Auto) 6.1, Lymph # (Auto) 1.5, [place] # (Auto) 0.5, Eos # (Auto) 0.1, Baso # (Auto) 0.1 07/20/21 08:54: Sodium 140, Potassium 4.0, Chloride 100, Carbon Dioxide 32 H, Anion Gap 12.0, BUN 18, Creatinine 0.90, Estimated Creat Clear 171, Estimated GFR 87, Est GFR ( Amer) 106, Glucose 127 H, Calcium 9.0, Magnesium 2.0, Total Bilirubin 0.8, AST 25, ALT 24, Alkaline Phosphatase 92, Total Protein 7.3, Albumin 4.4, Globulin 2.9, Albumin/Globulin Ratio 1.5 07/20/21 08:54: PT 11.2, INR 0.99, APTT 26.4 Result diagrams: 07/20/21 08:54 07/20/21 08:54 Orders (Tests/Meds): ED MEDICATIONS Generic Name Dose Route Start Last Admin Trade Name Freq PRN Reason Stop Dose Admin Docusate Sodium 100 mg 07/20/21 09:45 Docusate Sodium 100 Mg Capsule PO 08/19/21 09:44 DAILY NIMO Insulin Human Lispro 0 unit 07/20/21 09:45 Humalog 100 Units/Ml 3ml Vial (Ssi) SQ 08/19/21 09:44 Q6H NIMO Protocol Nicotine 21 mg 07/20/21 09:37 Nicotine 21mg/24hr Patch TD 08/19/21 09:36 DAILYP PRN Nicotine Cravings Ondansetron HCl 4 mg 07/20/21 09:37 Ondansetron 4mg/2ml Vial IV 08/19/21 09:36 Q8HP PRN Nausea Medical Decision Narrative: Patient is a 56-year-old male with history of chronic pain, with intrathecal pain pump with Dilaudid. Given patient's complex history, patient being sent after discussion with his physician Dr. Charles. Given this called physician to discuss concerns and management with him. Lisa patient with Dr. Mota as well as Dr. Payne. Patient will be admitted for intractable pain, for observation to back stated he may require IV Robaxin. Dr. Payne the patient admission. General Adult HPI - General Stated complaint: muscle spasms and pain Time Seen by Provider: 07/20/21 08:40 Source of Information: Patient, Medical Record Limitations: No Limitations - History of Present Illness HPI narrative: Patient is a 56-year-old male with past medical history of diabetes, chronic pain, she has a intrathecal pain pump with Dilaudid, and sees Dr. Charles the pain clinic. Patient states that since today the he has been having severe muscular and pain spasms in his left leg. He states that the pain first began in his foot and has slowly progressed upwards until it is now his hip. He has seen Dr. Mota in clinic for this on 07 17 where they increased his intrathecal pump Dilaudid to .6, and increased the number of boluses and also gave him bupivacaine. He did have some relief after this and was able to sleep. Last night on 07/19 pat
[2021-07-20 09:19] LABS: Basophils # 0.1 K/mm3 (0-0.2); Basophils % 0.6 % (0.1-2.0); Eosinophils # 0.1 K/mm3 (0.0-0.4); Hematocrit 41.6 % (42.0-52.0); Hemoglobin 13.4 g/dL (14.1-18.0); Lymphocytes # 1.5 K/mm3 (0.7-4.5); Mean Corpuscular HGB Conc 32.2 g/dL (31.8-35.4); Mean Corpuscular Volume 96.4 fl (80-94); Mean Platelet Volume 7.5 fl (7.4-10.4); Monocytes # 0.5 K/mm3 (0.1-1.0); Monocytes % 6.1 % (1.7-9.3); Neutrophils # 6.1 K/mm3 (1.8-7.8); Neutrophils % 74.3 % (37.0-80.0); Platelet Count 249 K/mm3 (142-424); Red Blood Count 4.31 M/mm3 (4.60-6.20); Red Cell Distribution Width 12.8 % (11.5-17.5); White Blood Count 8.2 K/mm3 (4.8-10.8)
[2021-07-20 09:23] LABS: Alanine Aminotransferase 24 U/L (12-78); Albumin Level 4.4 g/dl (3.5-5.0); Albumin/Globulin Ratio 1.5 (1.1-1.8); Alkaline Phosphatase 92 U/L (38-126); Aspartate Amino Transferase 25 U/L (17-59); Bilirubin,Total 0.8 mg/dl (0.2-1.3); Blood Urea Nitrogen 18 mg/dl (9-20); Carbon Dioxide 32 mmol/L (22.0-30.0); Chloride 100 mmol/L (98-107); Creatinine Clearance Estimated 171 mL/min (50-200); Estimated Glomerular Filt Rate 87 ml/min (>60); GFR (African American) 106 ML/MIN (>60); Globulin 2.9 g/dL (1.3-3.2); Glucose 127 mg/dl (74-100); Sodium 140 mmol/L (136-145); Total Protein,Serum 7.3 g/dl (6.3-8.2)
[2021-07-20 09:25] LABS: Activated Partial Thrombo Time 26.4 seconds (22.8-30.6); INR 0.99 (0.9-1.1); Prothrombin Time 11.2 seconds (10.1-12.5)
--- NOTE | 2021-07-20 09:32 | PC.NURSE ---
Dr Pressley speaking to Dr Payne
[2021-07-20 09:59] LABS: Coronavirus 19, PCR Not Detected (NotDetected); Influenza A, PCR Not Detected (NotDetected); Influenza B, PCR Not Detected (NotDetected)
--- NOTE | 2021-07-20 12:16 | PC.NURSE ---
Report given to Mary MENON
--- NOTE | 2021-07-20 12:20 | PC.NURSE ---
Pt has pain pump
--- NOTE | 2021-07-20 12:43 | PC.NURSE ---
Pt arrived to the floor at this time
--- NOTE | 2021-07-20 14:09 | P.CONPHA_ITS ---
[facility] Pharmacy VTE Monitoring - Patient Demographics Admission date: 07/20/21 Report Date: 07/20/21 Time: 14:09 Allergies/Adverse Reactions: Patient Allergies bupropion [From WELLBUTRIN] Allergy (Unknown, Verified 07/03/21 13:11) duloxetine [From CYMBALTA] Allergy (Unknown, Verified 07/03/21 13:11) gabapentin [GABAPENTIN] Allergy (Unknown, Verified 07/03/21 13:11) morphine [MORPHINE] Allergy (Unknown, Verified 07/03/21 13:11) I-HIVES pregabalin [From LYRICA] Allergy (Unknown, Verified 07/03/21 13:11) cyclosporine Allergy (Verified 07/03/21 13:11) zolpidem [From Ambien] Adverse Reaction (Verified 07/03/21 13:11) Height: 1.83 m Weight: 130.351 kg Patient Problems: Current Active Problems Intractable pain (Acute) - VTE Risk Labs: VTE Related Lab Results Hgb 13.4 g/dL (14.1-18.0) L 07/20/21 08:54 Hct 41.6 % (42.0-52.0) L 07/20/21 08:54 Plt Count 249 K/mm3 (142-424) 07/20/21 08:54 PT 11.2 seconds (10.1-12.5) 07/20/21 08:54 INR 0.99 (0.9-1.1) 07/20/21 08:54 APTT 26.4 seconds (22.8-30.6) 07/20/21 08:54 BUN 18 mg/dl (9-20) 07/20/21 08:54 Creatinine 0.90 mg/dl (0.66-1.25) 07/20/21 08:54 Estimated Creat Clear 171 mL/min (50-200) 07/20/21 08:54 Was VTE Risk Assessment Performed: Yes VTE Risk Level: Low Risk Clinical Trial Participant: No - Prophylaxis VTE Prophylaxis Ordered?: Yes Types of VTE Prophylaxis: TEDS Knee High
--- NOTE | 2021-07-20 14:20 | HMH.PHAINT ---
verified home medication list using list from [facility] and interview with pt .
--- NOTE | 2021-07-20 15:12 | PC.NURSE ---
Patient was an admit from the ER to room 213. Patient is non tele and on room air. Patient is up ad-lisa/standby assist. Patient has had no complaints of back/leg spasms since admission, patient does have chronic constant pain. Plan of care, possible evaluation for a pain pump procedure if needed on 07/21. Will continue to monitor and evaluate patient. Bed in lowest position and phone and call light in reach.
--- NOTE | 2021-07-20 15:51 | HMH.HP ---
*Admission Date: 07/20/21 <GermanSagrario - 07/20/21 16:00> *Chief complaint: low back spasms <Sagrario Porter - 07/20/21 16:00> *History of present illness: Patient is a 56-year-old male with past medical history of diabetes, chronic pain, he has a intrathecal pain pump with Dilaudid, and sees Dr. Charles the pain clinic. Patient states that since Saturday the he has been having severe muscular pain and spasms in his left leg. He states that the pain first began in his foot and has slowly progressed upwards until it is now at his hip. He has seen Dr. Charles in clinic for this on 07/17 and they increased his intrathecal pump Dilaudid to .6, and increased the number of boluses and also gave him bupivacaine. He did have some relief after this and was able to sleep. Last night on 07/19 patient presented to [facility] where he had CT imaging completed was normal and he was sent home. Today he called the pain clinic and was sent him to the emergency department with the intention to have the patient admitted for further work-up, fluoroscopy and investigation of the intrathecal pain pump. He denies new symptoms since last night, denies shortness of breath, chest pain, headache changes in vision. (above as per ER physician) The pain clinic instructed the patient to do a bolus 8 times a day and they wanted him admitted for intractable pain as they felt he may require IV Robaxin. Dr. Charles is to see him tomorrow to investigate his spine. His PCP is in [place]. <Sagrario Porter - 07/20/21 16:00> [facility] History I have reviewed the patient's past medical history: Yes <Sagrario Porter - 07/20/21 16:00> Medical History: Reports:: Diabetes Mellitus Type 2, Hypertension, Lung Disease (YUMIKO-cpap hs) Denies:: Cancer, Diabetes Mellitus Type 1, Internal Pacemaker, MRSA, Seizures <Sagrario Porter - 07/20/21 16:00> *Have you ever received a pneumonia vaccine?: Yes <Sagrario Porter 07/20/21 16:00> *Have you received a flu vaccine this season?: Yes <Sagrario Porter - 07/20/21 16:00> Other Medical History: Reports: Anemia, Arthritis, Other (Chronic back pain). Denies: Blood Transfusion Reaction <Sagrario Porter 07/20/21 16:00> Other Surgeries: Yes: Appendectomy, Cholecystectomy, Colonoscopy, EGD, Other (total 5 back surgery, pain stimulator and pain pump). No: Pacemaker <Sagrario Porter 07/20/21 16:00> Amputation: No <Sagrario Porter 07/20/21 16:00> Fractures: No <Sagrario Porter 07/20/21 16:00> - *Social History Last grade of school completed: GED <Sagrario Porter 07/20/21 16:00> Smoking Status: Former smoker <Sagrario Porter 07/20/21 16:00> Tobacco Type: cigarettes <Sagrario Porter 07/20/21 16:00> # Packs/Day (cigarettes): 1 <Sagrario Porter 07/20/21 16:00> #Yrs smoked (if former smoker): 30 <Sagrario Porter 07/20/21 16:00> Smoking End Date: 08/25/2020 <Sagrario Porter 07/20/21 16:00> Alcohol Intake: former <Sagrario Porter 07/20/21 16:00> Substance Use Type: other <Sagrario Porter 07/20/21 16:00> *Occupational Status:: retired, disabled <Sagrario Porter 07/20/21 16:00> Housing: house <Sagrario Porter 07/20/21 16:00> Household Members: spouse <Sagrario Porter 07/20/21 16:00> *Travel in the last 8 weeks: None <Sagrario Porter 07/20/21 16:00> Family Hx:: Coronary Artery Disease <Sagrario Porter 07/20/21 16:00> Review of Systems - Constitutional Reports fatigue, Reports weakness, Denies chills, Denies fever(s) <Sagrario Porter 07/20/21 16:00> - Eyes Denies blurry vision, Denies double vision <Sagrario Porter 07/20/21 16:00> - ENT Denies dizziness, Denies nasal congestion, Denies sore throat <Sagrario Porter 07/20/21 16:00> - *Cardiovascular Denies chest pain, Denies shortness of breath <Sagrario Porter 07/20/21 16:00> - *Respiratory Denies cough, Denies shortness of breath <Sagrario Porter 07/20/21 16:00> - *Gastrointestinal Reports nausea, Denies abdominal pain, Denies loose stools, Denies vomiting <Sagrario Porter 07/20
[2021-07-21 03:55] VITALS: BP 150/83; PULSE 76; RESP 16; TEMP 36.8; O2SAT 92
--- NOTE | 2021-07-21 05:11 | PC.NURSE ---
Addendum entered by Katie Meadows RN 07/21/21 05:56: Patient is experiencing severe muscle spasms rating the pain a 10/10. MD donor relations officer paged, medication given per MAR. Original Note: Patient had an episode of severe pain around 0300, rating it a 10/10. MD donor relations officer was paged, one time dose of Dilaudid was ordered. Medication given per MAR with tolerable results. Patient states it has eased up a lot Patient has voiced no other concerns to this RN thus far.
[2021-07-21 05:15] VITALS: BMI 38.9
[2021-07-21 07:53] VITALS: BP 130/65; PULSE 70; RESP 16; TEMP 36.9; O2SAT 94
--- NOTE | 2021-07-21 08:24 | HMH.ACPN2 ---
<Sagrario Porter - Last Filed: 07/21/21 08:24> Internal Medicine - PN: Subj *Date: 07/21/21 *Time: 08:24 Interval history: Patient states he was doing fine until around 3 AM when he started having muscle spasms again. He was given Dilaudid and this did not help at all. He was then given Ativan and this did seem to help and he was able to rest. His got here this morning and states he has been very sleepy. Dr. Charles is to see the patient around 2:00 today. Exam Vital signs and Labs for Last 24 Hours: Temp Pulse Resp BP Pulse Ox 98.4 F 70 16 130/65 94 L 07/21/21 07:53 07/21/21 07:53 07/21/21 07:53 07/21/21 07:53 07/21/21 07:53 Laboratory Results - last 24 hr 07/20/21 08:54: WBC 8.2, RBC 4.31 L, Hgb 13.4 L, Hct 41.6 L, MCV 96.4 H, MCH 31.0, MCHC 32.2, RDW 12.8, Plt Count 249, MPV 7.5, Neut % (Auto) 74.3, Lymph % (Auto) 18.0, [place] % (Auto) 6.1, Eos % (Auto) 1.0, Baso % (Auto) 0.6, Neut # (Auto) 6.1, Lymph # (Auto) 1.5, [place] # (Auto) 0.5, Eos # (Auto) 0.1, Baso # (Auto) 0.1 07/20/21 08:54: Sodium 140, Potassium 4.0, Chloride 100, Carbon Dioxide 32 H, Anion Gap 12.0, BUN 18, Creatinine 0.90, Estimated Creat Clear 171, Estimated GFR 87, Est GFR ( Amer) 106, Glucose 127 H, Calcium 9.0, Magnesium 2.0, Total Bilirubin 0.8, AST 25, ALT 24, Alkaline Phosphatase 92, Total Protein 7.3, Albumin 4.4, Globulin 2.9, Albumin/Globulin Ratio 1.5 07/20/21 08:54: PT 11.2, INR 0.99, APTT 26.4 07/20/21 08:59: SARS-CoV-2 (PCR) Not detected, Influenza A Untype (PCR) Not detected, Influenza Type B (PCR) Not detected I & O for Last 24 hours: Intake & Output 07/18/21 07/19/21 07/20/21 07/21/21 11:59 11:59 11:59 11:59 Intake Total 240 / 240 Balance 240 / 240 Weight 290 lb 287 lb 4.197 oz - Constitutional no acute distress - *Routine Respiratory Exam Present: CTA bilaterally - *Routine Cardiovascular Exam Present: RRR - *Routine Abdominal Exam Present: soft, normoactive bowel sounds. Absent: tenderness - *Routine Extremities Exam Present: edema (Bilateral lower extremity edema). Absent: cyanosis, clubbing - *Routine Skin Exam Present: warm. Absent: rash - *Routine Neurological Exam Present: alert, oriented X3 Assessment and Plan (1) Intractable pain Status: Acute Category: Medical Code(s): R52 - Pain, unspecified (2) Chronic low back pain Status: Chronic Category: Medical Code(s): M54.50 - Low back pain, unspecified; G89.29 - Other chronic pain (3) Type 2 diabetes mellitus Status: Chronic Category: Medical Code(s): E11.9 - Type 2 diabetes mellitus without complications (4) Lower extremity edema Status: Chronic Category: Medical Code(s): R60.0 - Localized edema - Assessment and plan all Dx Assessment and Plan for all problems:: Dr. Charles to see the patient at 2 PM today to evaluate his pump. <Madi Payne - Last Filed: 07/21/21 13:29> Internal Medicine - PN: Subj *Date: 07/21/21 *Time: 13:27 Exam Vital signs and Labs for Last 24 Hours: Temp Pulse Resp BP Pulse Ox 98.4 F 70 16 130/65 94 L 07/21/21 07:53 07/21/21 07:53 07/21/21 07:53 07/21/21 07:53 07/21/21 07:53 I & O for Last 24 hours: Intake & Output 07/19/21 07/20/21 07/21/21 07/22/21 11:59 11:59 11:59 11:59 Intake Total 240 / 240 120 / 120 Balance 240 / 240 120 / 120 Weight 290 lb 287 lb 4.197 oz Assessment and Plan (1) Intractable pain Status: Acute Category: Medical Code(s): R52 - Pain, unspecified (2) Chronic low back pain Status: Chronic Category: Medical Code(s): M54.50 - Low back pain, unspecified; G89.29 - Other chronic pain (3) Type 2 diabetes mellitus Status: Chronic Category: Medical Code(s): E11.9 - Type 2 diabetes mellitus without complications (4) Lower extremity edema Status: Chronic Category: Medical Code(s): R60.0 - Localized edema - Assessment and plan all Dx Assessment and Plan for all prob
--- NOTE | 2021-07-21 15:20 | PC.NURSE ---
Patient is non tele and on room air. Patient is up ad-lisa. Patient has had no complaints of pain. Patient left room at 1420 to go to Pain Clinic to see Dr. Charles. Patient returned to room at 1500. Patient good to discharge to home from Dr. Charles, awaiting orders from Dr. Payne. Bed in lowest position and phone and call light in reach.
[2021-07-21 15:21] VITALS: BP 134/77; PULSE 72; RESP 18; TEMP 37.1; O2SAT 95
--- NOTE | 2021-07-21 15:30 | HMH.PMPROC ---
- Procedure Date: 07/21/21 Time: 15:30 Anesthesiologist:: Joseph Charles MD Complications:: None Pre-procedure Diagnosis:: Degenerative disc disease of lumbar spine with lumbar radiculopathy symptoms with acute muscle spasms Post-procedure Diagnosis:: Same Indications for Procedure:: This patient is a pleasant 56-year-old white male who we are treating for low back pain with lumbar radiculopathy symptoms. He was admitted last night through the emergency room with acute muscle spasms. He has been suffering with these over the last few days. He is currently on Robaxin which is not helping. He has had boluses through his pump which did help temporarily. We will do an intrathecal catheter dye study and pump study today to make sure his pump is functioning appropriately and properly with patency of his catheter. Procedure Details:: Intrathecal pump study and catheter dye study Informed consent was obtained the risk and benefits of the procedure were explained to the patient. Patient was taken the procedure room. The area over the pump was prepped using ChloraPrep. We did access the side-port of the pump with a 22-gauge needle. We were able to withdraw medication and CSF. We injected dye to the catheter the tip of the catheter was in the intrathecal space at the T12 vertebral body. The catheter was patent and in proper position. The pump was functioning appropriately. The pump was interrogated. The patient was placed on a periodic bolus system of 1 mg every 2 hours increasing his daily dose to 12 mg/day of intrathecal Dilaudid/bupivacaine. Patient tolerated the procedure well with no complications. Plan and Disposition:: We did ascertain that the patient's pump is functioning appropriately. We will follow-up with him next week. He can be discharged home. We did adjust his dose to help him with his acute muscle spasms. I will also place him on Valium 5 mg as needed 1-2 times daily as needed if he does have return of his muscle spasms. I will give him 30 tablets. Will and drug screen are all appropriate.
--- NOTE | 2021-07-21 16:41 | PC.NURSE ---
patient ready for discharge to home
--- NOTE | 2021-07-23 21:32 | HMH.DCSUM ---
General - General Admission date:: 07/20/21 <Madi Payne - 08/12/21 23:21> 07/20/21 <Sagrario Porter - 07/23/21 21:35> Discharge date: 07/21/21 <Sagrario Porter - 07/23/21 21:35> HPI HPI: Patient is a 56-year-old male with past medical history of diabetes, chronic pain, he has a intrathecal pain pump with Dilaudid, and sees Dr. Charles the pain clinic. Patient states that since Saturday the he has been having severe muscular pain and spasms in his left leg. He states that the pain first began in his foot and has slowly progressed upwards until it is now at his hip. He has seen Dr. Chrales in clinic for this on 07/17 and they increased his intrathecal pump Dilaudid to .6, and increased the number of boluses and also gave him bupivacaine. He did have some relief after this and was able to sleep. Last night on 07/19 patient presented to [facility] where he had CT imaging completed was normal and he was sent home. Today he called the pain clinic and was sent him to the emergency department with the intention to have the patient admitted for further work-up, fluoroscopy and investigation of the intrathecal pain pump. He denies new symptoms since last night, denies shortness of breath, chest pain, headache changes in vision. (above as per ER physician) The pain clinic instructed the patient to do a bolus 8 times a day and they wanted him admitted for intractable pain as they felt he may require IV Robaxin. Dr. Charles is to see him tomorrow to investigate his spine. His PCP is in [place]. <Sagrario Porter - 07/23/21 21:35> Hospital Course Hospital Course: The patient was admitted for intractable pain and Dr. Charles was to consulted the next day. Initially he was comfortable receiving an additional pain pump bolus. Throughout the night however, he began having severe muscle spasms. He was given Dilaudid and this did not help. He was then given Ativan and this did seem to help him relax and rest. Dr. Charles performed an intrathecal pump study and catheter dye study. He ascertained that the patient's pump was functioning appropriately and he felt he could be discharged home with a follow-up in 1 week. He did adjust his dose to help with acute muscle spasms and placed him on Valium 5 mg as needed 1-2 times a day. <Sagrario Porter - 07/23/21 21:35> Objective Vital signs: Temp Pulse Resp BP Pulse Ox 98.8 F 72 18 134/77 95 07/21/21 15:21 07/21/21 15:21 07/21/21 15:21 07/21/21 15:21 07/21/21 15:21 <Madi Payne - 08/12/21 23:21> Temp Pulse Resp BP Pulse Ox 98.8 F 72 18 134/77 95 07/21/21 15:21 07/21/21 15:21 07/21/21 15:21 07/21/21 15:21 07/21/21 15:21 <Sagrario Porter - 07/23/21 21:35> Narrative: - Constitutional no acute distress - *Routine Respiratory Exam Present: CTA bilaterally - *Routine Cardiovascular Exam Present: RRR - *Routine Abdominal Exam Present: soft, normoactive bowel sounds. Absent: tenderness - *Routine Extremities Exam Present: edema (Bilateral lower extremity edema). Absent: cyanosis, clubbing - *Routine Skin Exam Present: warm. Absent: rash - *Routine Neurological Exam Present: alert, oriented X3 <Sagrario Porter - 07/23/21 21:35> DS: Diagnosis - Discharge Diagnosis (1) Intractable pain Status: Acute (2) Chronic low back pain Status: Chronic (3) Type 2 diabetes mellitus Status: Chronic (4) Lower extremity edema Status: Chronic <Sagrario Porter - 07/23/21 21:32> (1) Intractable pain Status: Acute (2) Chronic low back pain Status: Chronic (3) Type 2 diabetes mellitus Status: Chronic (4) Lower extremity edema Status: Chronic <Madi Payne - 08/12/21 23:21> Discharge Plan - Patient Discharge Instructions ACTIVITY: Continue current activity <Sagrario Porter - 07/23/21 21:35> DIET: continue same diet <Sagrario Porter - 07/23/21 21:35> Patient Instructions:
== END 2021-07-21 14:00 | disposition home or self-care (01) ==
LOC: ER 09:17 → 2ND 11:36
PROVIDERS: Admitting Provider Family Medicine; Emergency Provider Emergency Medicine; Visit Provider Family Medicine
DX: M51.16 Intervertebral disc disorders with radiculopathy, lumbar region (principal); E11.9 Type 2 diabetes mellitus without complications; I10 Essential (primary) hypertension; Z45.1 Encounter for adjustment and management of infusion pump; M62.838 Other muscle spasm; Z88.8 Allergy status to other drugs, medicaments and biological substances; Z79.899 Other long term (current) drug therapy; Z79.891 Long term (current) use of opiate analgesic; Z20.822 Contact with and (suspected) exposure to COVID-19
CPT/HCPCS: 62367; 80053; 83735; 85025; 85610; 85730; 99284; C9803; G0378; Q9966; U0003; U0005

== ENCOUNTER → 2021-08-04 15:06 | Outpatient (POV) | payer OTHER, MEDICARE, SELFPAY ==
[2021-08-04 15:00] VITALS: BP 143/67; PULSE 71; RESP 20; TEMP 36.6; O2SAT 94; BMI 38.7
--- NOTE | 2021-08-04 15:34 | P.CONS_ITS ---
[facility] Pain Management SOAP Note Subjective:: Patient is a very pleasant 56-year-old white male who presents today for follow- up after being hospitalized with acute muscle spasms after his last pump refill. He has an intrathecal pump with a flow David pump system with intrathecal Dilaudid 30 mg/mL and intrathecal bupivacaine 15 mg/mL on periodic flow 12 mg/day of intrathecal Dilaudid and 6 mg/day of intrathecal bupivacaine. He states since transitioning to periodic flow he is doing significantly better but notes mild numbness sides of his right leg. However he states that this is very tolerable. Denies any acute muscle spasms at this point. He does not want any changes to his pump settings today. He denies any adverse effects. Objective:: General: Alert and oriented x3, no acute distress, pleasant and cooperative Lungs: Resps E/U, symmetric chest expansion Eyes: PERRL Musculoskeletal: limited flexion and extension of the lumbar spine secondary to pain. Deep tendon reflexes were normal in bilateral lower extremities. Motor exam was grossly intact in the bilateral lower extremities, antalgic gait noted. 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 We interrogated the pump today. He is next refill date is on August 22, 2021 and his next refill appointment date is August 21, 2021 at 1:15 PM. We will continue to monitor symptoms of leg numbness and his chronic pain symptoms determine her he would like to make an adjustment at the next refill appointment. [facility] #[id number] was reviewed and appropriate. [facility] History I have reviewed the patient's past medical history: Yes Medical History: Reports:: Diabetes Mellitus Type 2, Hypertension, Lung Disease (YUMIKO-cpap hs) Denies:: Cancer, Diabetes Mellitus Type 1, Internal Pacemaker, MRSA, Seizures *Have you ever received a pneumonia vaccine?: No (already had) *Have you received a flu vaccine this season?: No (already had) Other Medical History: Reports: Anemia, Arthritis, Other (Chronic back pain). Denies: Blood Transfusion Reaction Other Surgeries: Yes: Appendectomy, Cholecystectomy, Colonoscopy, EGD, Other (total 5 back surgery, pain stimulator and pain pump). No: Pacemaker Amputation: No Fractures: No - *Social History Smoking Status: Former smoker Tobacco Type: cigarettes # Packs/Day (cigarettes): 1 #Yrs smoked (if former smoker): 30 Alcohol Intake: former Substance Use Type: other *Occupational Status:: retired, disabled Housing: house Household Members: spouse *Travel in the last 8 weeks: None Family Hx:: Coronary Artery Disease
== END ==
PROVIDERS: PCP Internal Medicine; Visit Provider Anesthesiology Pain Medicine
DX: M51.16 Intervertebral disc disorders with radiculopathy, lumbar region (principal)
CPT/HCPCS: 99212; G0463

== ENCOUNTER 2021-08-21 15:00 | Day surgery (SDC) | payer OTHER, MEDICARE, SELFPAY ==
--- NOTE | 2021-08-21 15:03 | [facility].PMPROC ---
- Procedure Date: 08/21/21 Time: 15:03 Anesthesiologist:: Yenny Wise APRN Complications:: None Pre-procedure Diagnosis:: Degenerative disc disease lumbar spine with lumbar radiculopathy symptoms, muscle spasms Post-procedure Diagnosis:: Same Indications for Procedure:: Patient is a pleasant 56-year-old white male who presents today for intrathecal pain pump [refill] [and reprogram]. The patient is being treated for degenerative disc disease lumbar spine with lumbar radiculopathy symptoms. The patient does have sporadic muscle spasms in his rectal area. He is very upset today because he has been advised we will fill his pump under fluoroscopy today. Patient is reporting to have pain with palpation of pump and when laying flat for accessing the pump. He has said he would like to see Dr. Charles in the [facility] and would like to change service.. Patient rates pain a 8 out of 10. Drug screen is appropriate. Will [id number] has been reviewed and is appropriate. Physical exam General: Alert and oriented x3, no acute distress, pleasant and cooperative, [on room air] Lungs: Respirations even and unlabored, symmetrical chest expansion Eyes: PERRL Musculoskeletal: Flexion and extension of lumbar [spine] somewhat guarded secondary to pain, [antalgic gait noted] Neurological: Speech clear, no gross sensory deficit Procedure Details:: Informed consent was obtained and the risk and benefits of the procedure were explained to the patient. The patient was taken to the procedure room where noninvasive monitoring was placed including noninvasive blood pressure cuff and pulse oximeter. Patient's pump was interrogated. Patient was placed prone position with fluoroscopy placed over patient pump. The area over the pump was cleansed with chlorhexidine as a cleansing solution. In sterile fashion the pump was accessed with a 22-gauge needle. Approximately 4 mls of the pump solution was removed and discarded appropriately. The pump was then refilled with 20 mL's of Dilaudid 30 mg per mill bupivacaine 15 mg per mill. The needle was withdrawn and a bandage was placed over the puncture site. The infusion rate was reprogrammed at continued at Dilaudid 12 mg/day and bupivacaine 6 mg/day. The patient tolerated well with no complication. Plan and Disposition:: Patient has requested transfer of service to the [facility]. We will send his information to [facility] for Dr. Charles to see the patient. He would prefer to see Dr. Charles for future visit. Patient did not feel comfortable having pump filled under fluoroscopy today. We will see the patient back in the clinic at the next intrathecal refill. Patient has been instructed to contact the clinic with any concerns before the next appointment. Dr. Charles has reviewed this note and agrees with this plan of care. This note was dictated using voice recognition software and make contain errors or omissions.
[2021-08-21 15:06] VITALS: BP 138/72; PULSE 85; RESP 20; TEMP 36.6; O2SAT 94; BMI 38.9
[2021-08-21 15:13] VITALS: BP 169/74; PULSE 91; RESP 18; O2SAT 97
[2021-08-21 15:14] VITALS: PULSE 86; RESP 18; O2SAT 96
[2021-08-21 15:35] VITALS: BP 151/83; PULSE 91; RESP 20; O2SAT 97
== END 2021-08-21 15:35 | disposition home or self-care (01) ==
LOC: SC.PAINP 15:01
PROVIDERS: PCP Internal Medicine; Visit Provider Clinical Nurse Specialist Family Health
DX: M51.16 Intervertebral disc disorders with radiculopathy, lumbar region (principal); M62.838 Other muscle spasm; Z45.1 Encounter for adjustment and management of infusion pump
CPT/HCPCS: 62370